=== PATIENT | female | born 2000 | race Caucasian/White ===

== ENCOUNTER 2023-06-12 11:50 | Emergency (ER) | payer OTHER, SELFPAY ==
[2023-06-12 11:54] VITALS: BP 119/79
[2023-06-12 12:15] VITALS: BMI 23.1
--- NOTE | 2023-06-12 12:23 | EDRN ---
pt resting in stretcher in the lowest position, side rails up x1, HOB elevated, call fox within reach, the pt states that she cannot eat or drink due to trouble swallowing, the pts voice sounds muffled and the pt states that her throat is swollen,
no s/s of distress, Sp02 99%, Nilesh TRINH notified, will continue to monitor the pt closely
--- NOTE | 2023-06-12 12:39 | ED.GENMED ---
History of Present Illness
General
Chief Complaint: Throat Problem
Source: patient
Time Seen by Provider: 06/12/23 12:04
Travel History
Have you had any contact with someone who has COVID-19?: No
Do you have any symptoms of coronavirus? Fever > 100 degrees, chills, cough, shortness of breath, sore throat, loss of taste or smell, muscle aches, or headache?: Yes
Symptoms:: sore throat
History of Present Illness
History of Present Illness:
23-year-old female with past medical history of anxiety/depression presents to the emergency department for evaluation after she was diagnosed with tonsillitis 4 days ago, started on Augmentin but states that she has not had any relief and her voice
remains very hoarse, has continuously enlarged tonsils with exudates and generally feeling unwell. She reports she had a similar infection around 2 months ago and felt better after 1 day of antibiotics. She endorses additional fatigue and
bodyaches. No known sick contacts or recent travel. No rashes. Of note, patient's mother is an emergency department physician who diagnosed the patient and started her on the antibiotics 4 days ago.
Past History
Past History
ED Past Medical History: Psychiatric (Depression, Anxiety, ADHD) and Other (Scoliosis, )
ED Past Surgical History: Other (Mastoidectomy)
Social History
Tobacco: Vaping
Alcohol: None
Drug: Marijuana
Personal: Single
Living: with family
Employment: Employed
Family History
Family History: Other
Review of Systems
Review of Systems
All Other Systems: ROS reviewed and negative except as documented in HPI and ROS
Phy Exam
Physical Exam
Physical Exam:
GENERAL: Alert , in no apparent distress
EYE: conjunctiva clear
NECK: Supple, posterior cervical chain lymphadenopathy and submandibular lymphadenopathy
ENT: 2+ tonsillar edema bilateral with exudates, uvula midline, airway patent, tolerating secretions, no trismus or stridor, mmm.
CARDIAC: Regular rate and rhythm
LUNGS: Clear breath sounds bilaterally, no acute respiratory distress, no wheezes/rales/rhonchi
NEUROLOGICAL: Alert and oriented
SKIN: Warm and dry, skin intact.
MUSCULOSKELETAL: well perfused.
PSYCH: Normal and appropriate interaction.
Scores
Heart Failure Risk
Heart Failure Risk Score: Not Applicable
Heart Score for Chest Pain Patients
STEMI patient?: Not applicable
Withdrawal Assessment of Alcohol
Withdrawal Assessment Completed?: Not applicable
Course
Orders/Labs/Results
Orders:
Orders
06/12/23 12:33
Dexamethasone Sod Phosphate [Decadron] 10 mg IV NOW STA
Ketorolac [Toradol] 30 mg IV NOW STA
Viscous Lidocaine 2% [Xylocaine Viscous Cup] 15 ml PO NOW STA
06/12/23 12:46
Complete Blood Count/With Diff Urgent
Comprehensive Metabolic Panel Urgent
Manual Differential Urgent
Monotest Urgent
Abnormal Lab Results
06/12/23
12:46
Segmented Neutrophils 39 L %
(42-75)
Creatinine 0.5 L mg/dL
(0.6-1.0)
AST 105 H U/L
(14-36)
ALT 195 H U/L
(0-35)
Alkaline Phosphatase 191 H U/L
(38-126)
Monoscreen Positive A
(Negative)
06/12/23 12:46
06/12/23 12:46
Vital Signs
Initial and Last Documented VS:
Initial Vital Signs
Temp Pulse Resp BP Pulse Ox
98.6 F 96 18 119/79 97
06/12/23 11:54 06/12/23 11:54 06/12/23 11:54 06/12/23 11:54 06/12/23 11:54
Last Documented Vital Signs
Temp Pulse Resp BP Pulse Ox
98.6 F 90 18 136/83 99
06/12/23 11:54 06/12/23 13:59 06/12/23 11:54 06/12/23 13:59 06/12/23 12:15
MDM/Problems Addressed
Differential Diagnosis Includes:
Tonsillitis, mono, strep, peritonsillar abscess, retropharyngeal abscess
MDM/Problems Addressed:
23-year-old female recently diagnosed with tonsillitis, started on Augmentin, taking without much relief. Exam does reveal 2+ tonsillar edema with exudates bilateral. Given lack of improvement I do suspect there could be a potential for
mononucleosis. Will check labs. Symptomatic relief with Toradol, Decadron and viscous lidocaine.
*Pulse Oximetry
Patient hypoxic: no
*Critical Care Note
Total Time (30-74mins, 75-104mins- exclusive of procedures): Not Applicable
Patient Management
Escalation/DeEscalation of care consider admission/obs:
Patient's mono came back positive. LFTs were mildly elevated. Patient's mother is now in the emergency department with the patient who is an ER attending and with shared decision making we discussed CT of the neck to rule out any abscess however
mother would like to forego this at this time but they are aware of return precautions to the ER. Stable for discharge home. Prescription for a Medrol Dosepak sent to patient's pharmacy.
ED Attending Note
-
Portions of this chart may have been created with voice recognition software.� Occasional wrong word or��sound alike� substitutions may have occurred due to the inherent limitations of voice recognition software.
Discharge Plan
Departure
Patient Disposition: Home (Routine Discharge)
Date of Disposition: 06/12/23
Time of Disposition: 13:49
Patient with high blood pressure during this ER visit?: No
Discharge Problem:
Mononucleosis
Instructions: Mononucleosis (DC)
Prescriptions:
New
methylprednisolone [Medrol (Martin)] 4 mg tablets,dose pack
4 mg PO DIRECTED Qty: 21 0RF
No Action
trazodone 50 mg Tablet
50 mg PO HS
lurasidone [Latuda] 40 mg Tablet
40 mg PO DAILY
Rx Instructions:
must administer with food (at least 350 calories)
Luvox
25 mg PO HS
amoxicillin-pot clavulanate [Augmentin] 400-57 mg/5 mL Suspension For Reconstitution
10 ml PO BID
Referrals:
Jazz Alberto CRNP [Family Provider] -
Negrito Frank MD [Active] -
(ENT - Call for appointment as needed
)
Stand Alone Forms: Return to Work
Interventions
Interventions:
*Risk Screen - Suicide Last Done: 06/12/23 11:54
*General Assessment Last Done: 06/12/23 11:54
*Neglect/Abuse Screening Last Done: 06/12/23 11:54
ED- Fall Risk Assessment Last Done: 06/12/23 12:15
*ED COVID-19 Vaccine History Last Done: 06/12/23 11:54
*Nursing Disposition Last Done: 06/12/23 13:59
ED-EENT Assessment Last Done: 06/12/23 12:15
ED- Pulmonary Assessment Last Done: 06/12/23 12:15
Discharge Date and Time
Discharge Date/Time: 06/12/23 14:00
[2023-06-12] MEDS: XYLOCAINE VISCOUS CUP 15 ML PO (12:57)
[2023-06-12] MEDS: TORADOL 30 MG IV (12:57)
[2023-06-12] MEDS: DECADRON 10 MG IV (12:58)
[2023-06-12 13:01] LABS: Hematocrit 38.1 % (37.0-47.0); Hemoglobin 12.9 g/dL (12.0-16.0); Mean Corp Hgb Conc. 33.9 g/dL (33.0-37.0); Mean Corpuscular Hgb 28.1 pg (27.0-31.0); Mean Platelet Volume 10.1 fL (7.4-10.4); Platelet Count 242 10^3/uL (130-400); Red Blood Cell Count 4.59 10^6/uL (4.20-5.40); Red Cell Dist. Width 13.4 % (11.5-14.5); White Blood Cell Count 7.3 10^3/uL (4.8-10.8)
[2023-06-12 13:14] LABS: ALT (SGPT) 195 U/L (0-35); AST (SGOT) 105 U/L (14-36); Albumin 4.1 g/dl (3.5-5.0); Alkaline Phosphatase 191 U/L (38-126); Blood Urea Nitrogen 14 mg/dl (7-17); Calcium 9.2 mg/dl (8.4-10.2); Carbon Dioxide 26 mmol/L (22-30); Chloride 107 mmol/L (98-107); Estimated Creatinine Clearance > 125 ml/min; Glucose 91 mg/dl (70-99); Sodium 136 mmol/L (135-145); Total Protein 7.2 g/dl (6.3-8.2); eGFR > 60.00
--- NOTE | 2023-06-12 13:24 | EDRN ---
Nilesh TRINH currently at the pts bedside speaking to the pt and the pts mother
[2023-06-12 13:35] LABS: Absolute Neutrophils -Man Diff 2.8 10^3/uL (1.4-6.5); Atypical Lymphocytes 7 %; Band Neutrophils 0 % (0-3); Lymphocytes 49 % (20-51); Monocytes 5 % (2-9); Normal RBC Morphology Yes; Platelets Checked Yes; Segmented Neutrophils 39 % (42-75); Total Cells Counted 100
[2023-06-12 13:43] LABS: Monotest Positive (Negative)
--- NOTE | 2023-06-12 13:45 | EDRN ---
verbal report given to results pending nurse Darlin MACDONALD, the pt will be taken to [facility]
[2023-06-12 13:57] VITALS: BP 136/83
[2023-06-12 13:59] VITALS: BP 136/83
== END 2023-06-12 14:00 | disposition home or self-care (01) ==
LOC: EMR 11:50
PROVIDERS: Physician Assistant Medical; EMERGENCY PHYSICIAN Emergency Medicine; FAMILY PHYSICIAN Nurse Practitioner Family
DX: B27.90 Infectious mononucleosis, unspecified without complication (principal); F17.290 Nicotine dependence, other tobacco product, uncomplicated; F41.9 Anxiety disorder, unspecified; F32.A Depression, unspecified
CPT/HCPCS: 99284; 96374; 96375; 80053; 85025; 86308

== ENCOUNTER 2023-07-27 06:16 | Emergency (ER) | payer SELFPAY ==
[2023-07-27 06:19] VITALS: BP 143/96
[2023-07-27 06:22] VITALS: BMI 23.1
--- NOTE | 2023-07-27 06:53 | ED.GENMED ---
History of Present Illness
General
Chief Complaint: Abdominal Symptoms
Source: patient and records
Exam Limitations: none
Time Seen by Provider: 07/27/23 06:40
Nursing documentation reviewed up to this point in time: agreed with
Travel History
Have you had any contact with someone who has COVID-19?: No
Do you have any symptoms of coronavirus? Fever > 100 degrees, chills, cough, shortness of breath, sore throat, loss of taste or smell, muscle aches, or headache?: No
History of Present Illness
History of Present Illness:
23-year-old female presents with abdominal pain nausea vomiting history of hyperemesis cannabis syndrome had quit smoking for a while restarted recently woke up middle the night vomiting with cramping no diarrhea no fever no prior abdominal
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
Past History
Past History
ED Past Medical History: Psychiatric (Depression, Anxiety, ADHD) and Other (Scoliosis, )
ED Past Surgical History: Other (Mastoidectomy)
Social History
Tobacco: Vaping
Alcohol: None
Drug: Marijuana
Personal: Single
Living: with family
Employment: Employed
Family History
Family History: Other
Review of Systems
Review of Systems
All Other Systems: Not applicable
Constitutional: Denies fever or fatigue
EENT: Reports no symptoms
Respiratory: Reports no symptoms
Cardiac: Reports no symptoms
ABD/GI: Reports abdominal pain, nausea and vomiting; Denies diarrhea
Musculoskeletal: Reports no symptoms
Skin: Reports no symptoms
Phy Exam
Physical Exam
Physical Exam:
Physical Exam
General: 23 female appears nauseous
Neck: Lips are dry
Heart: s1/s2 regular rate and rhythm, no murmur. equal radial pulses.
Lungs: no acute respiratory distress. clear bilaterally
Abdomen: Soft mild diffuse tender
Neuro: alert and oriented. no focal neurological deficits
Skin: no rash
Psychiatric: well kept. interactive and cooperative
Extremities: no edema.
Course
Orders/Labs/Results
Orders:
Orders
07/27/23 06:49
0.9% Sodium Chloride 1000 ml [Nss] 1,000 ml IV BOLUS
Ondansetron Injectable [Zofran] 4 mg IV NOW STA
Promethazine [Phenergan] 25 mg 0.9% Sodium Chloride 50 ml [Nss] 50 ml IV NOW
Test Result ONCE
07/27/23 07:05
Diphenhydramine [Benadryl] 25 mg IV NOW STA
07/27/23 07:18
Haloperidol Lactate [Haldol] 3 mg IM NOW STA
07/27/23 07:32
HCG, Urine Qualitative Screen Urgent
Date Specimen was Collected: 07/27/23
Time Specimen was Collected: 07:30
07/27/23 07:40
Complete Blood Count/With Diff Urgent
07/27/23 07:46
Ondansetron Injectable [Zofran] 4 mg IV NOW STA
07/27/23 08:01
Comprehensive Metabolic Panel Urgent
Abnormal Lab Results
07/27/23
07:40
WBC 10.9 H 10^3/uL
(4.8-10.8)
Absolute Neuts (auto) 9.1 H 10^3/uL
(1.4-6.5)
Absolute Lymphs (auto) 1.0 L 10^3/uL
(1.2-3.4)
Neutrophils % 84.1 H %
(42.2-75.2)
Lymphocytes % 9.0 L %
(20.5-51.1)
07/27/23 07:40
Vital Signs
Initial and Last Documented VS:
Initial Vital Signs
Temp Pulse Resp BP Pulse Ox
97.6 F 126 28 143/96 100
07/27/23 06:19 07/27/23 06:19 07/27/23 06:19 07/27/23 06:19 07/27/23 06:19
Last Documented Vital Signs
Temp Pulse Resp BP Pulse Ox
97.6 F 78 16 127/73 99
07/27/23 06:19 07/27/23 10:05 07/27/23 10:05 07/27/23 10:05 07/27/23 10:05
MDM/Problems Addressed
Differential Diagnosis Includes:
Dehydration hyperemesis cannabis enteritis infectious colitis appendicitis biliary colic
MDM/Problems Addressed:
Nausea vomiting pain
Chronic conditions affecting care:
Mental illness hyperemesis cannabis
Acute Exacerbation and/or Progression of Chronic Illness:
Mental illness hyperemesis
*Pulse Oximetry
Patient hypoxic: no
*Critical Care Note
Total Time (30-74mins, 75-104mins- exclusive of procedures): Not Applicable
Data Reviewed
Review of Other/Old Records Reveals: Records and Progress Notes
Source: patient
Update Note
Update Note:
8:15 AM patient resting comfortably looks much improved
White count and hCG noted other labs are hemolyzed
10:30 AM patient resting comfortably will try some p.o. ice chips
11 AM patient feeling better
ED Attending Note
-
Portions of this chart may have been created with voice recognition software.� Occasional wrong word or��sound alike� substitutions may have occurred due to the inherent limitations of voice recognition software.
Discharge Plan
Departure
Patient Disposition: Home (Routine Discharge)
Date of Disposition: 07/27/23
Time of Disposition: 10:31
Patient with high blood pressure during this ER visit?: No
Condition: Good
Discharge Problem:
Cannabis use, unspecified, uncomplicated, Nausea with vomiting, unspecified
Instructions: Dehydration, Adult (DC), [place] Diet, Abdominal Pain
Prescriptions:
New
promethazine 25 mg tablet
25 mg PO QID PRN (Reason: nausea and vomiting) Qty: 14 0RF
No Action
trazodone 50 mg Tablet
25 mg PO HS
fluoxetine [Prozac] 20 mg Capsule
20 mg PO DAILY
Referrals:
Jazz Alberto CRNP [Family Provider] -
Interventions
Interventions:
*Risk Screen - Suicide Last Done: 07/27/23 06:19
*General Assessment Last Done: 07/27/23 06:29
*Neglect/Abuse Screening Last Done: 07/27/23 06:19
ED- Fall Risk Assessment Last Done: 07/27/23 07:28
*ED COVID-19 Vaccine History Last Done: 07/27/23 06:19
MP-Wifpgr-Zyuexudrup Assessment Last Done: 07/27/23 06:29
Discharge Date and Time
Print Language: DJIBOUTIAN
[2023-07-27] MEDS: NSS 1000 IV (07:40)
[2023-07-27] MEDS: BENADRYL 25 MG IV (07:43)
[2023-07-27] MEDS: ZOFRAN 4 MG IV (07:43)
[2023-07-27] MEDS: HALDOL 3 MG IM (07:45)
[2023-07-27 07:56] LABS: HCG, Urine Qualitative Screen Negative
[2023-07-27 08:01] LABS: % Basophils 0.4 % (0-2); % Eosinophils 0.3 % (0-6); % Immature Granulocytes 0.4 % (0-0.5); % Monocytes 5.8 % (1.7-9.3); % Neutrophils 84.1 % (42.2-75.2); Absolute Monocytes 0.6 10^3/uL (0.1-0.6); Absolute Neutrophils 9.1 10^3/uL (1.4-6.5); Hematocrit 41.6 % (37.0-47.0); Hemoglobin 14.2 g/dL (12.0-16.0); Mean Corp Hgb Conc. 34.1 g/dL (33.0-37.0); Mean Corpuscular Hgb 28.7 pg (27.0-31.0); Mean Corpuscular Volume 84.2 fL (81.0-99.0); Mean Platelet Volume 10.2 fL (7.4-10.4); Nucleated Red Blood Cells % 0 %; Platelet Count 236 10^3/uL (130-400); Red Blood Cell Count 4.94 10^6/uL (4.20-5.40); Red Cell Dist. Width 12.6 % (11.5-14.5); White Blood Cell Count 10.9 10^3/uL (4.8-10.8)
[2023-07-27 10:05] VITALS: BP 127/73
[2023-07-27 11:03] VITALS: BP 112/73
== END 2023-07-27 11:16 | disposition home or self-care (01) ==
LOC: EMR 06:16
PROVIDERS: EMERGENCY PHYSICIAN Emergency Medicine; FAMILY PHYSICIAN Nurse Practitioner Family
DX: F12.90 Cannabis use, unspecified, uncomplicated (principal); R11.2 Nausea with vomiting, unspecified; F41.9 Anxiety disorder, unspecified; F90.9 Attention-deficit hyperactivity disorder, unspecified type; M41.9 Scoliosis, unspecified; F17.290 Nicotine dependence, other tobacco product, uncomplicated
CPT/HCPCS: 99283; 96374; 96375; 96376; 96372; 96361; 81025; 85025

== ENCOUNTER → 2024-01-05 11:53 | Outpatient (REF) | payer OTHER, SELFPAY | LOC: UCDH 11:53 | PROVIDERS: ATTENDING PHYSICIAN Emergency Medicine; FAMILY PHYSICIAN Nurse Practitioner Family | DX: S69.92XA Unspecified injury of left wrist, hand and finger(s), initial encounter (principal) | CPT/HCPCS: 73110 ==

== ENCOUNTER 2024-03-19 10:20 | Emergency (ER) | payer OTHER, SELFPAY ==
[2024-03-19 10:23] VITALS: BP 109/85
--- NOTE | 2024-03-19 10:35 | ED.GENMED ---
History of Present Illness
General
Chief Complaint: Musculo-Skeletal Complaint
Source: patient
Exam Limitations: none
Time Seen by Provider: 03/19/24 10:27
Nursing documentation reviewed up to this point in time: agreed with
History of Present Illness
History of Present Illness:
23-year-old female presents emergency department today with left lateral ankle pain and swelling. Patient reports that last night, she was with friends and was having a few drinks when she was walking and her ankle rolled inwards and she
immediately felt sharp pain. Patient states that she did not fall to the ground. Patient denies any trauma to the head or neck. Patient states that since the injury, she started develop swelling and states that she has pain with weightbearing.
Patient denies any other injuries.
Past History
Past History
ED Past Medical History: Psychiatric (Depression, Anxiety, ADHD) and Other (Scoliosis, )
ED Past Surgical History: Other (Mastoidectomy)
Social History
Tobacco: Vaping
Alcohol: None
Drug: Marijuana
Personal: Single
Living: with family
Employment: Employed
Family History
Family History: Other
Review of Systems
Review of Systems
All Other Systems: ROS reviewed and negative except as documented in HPI and ROS
Phy Exam
Physical Exam
Physical Exam:
General: Patient is well appearing and in no acute distress; non-toxic
Skin: Warm and dry, no rashes or lesions
Head: Normocephalic, atraumatic
Eyes: Sclera non-icteric. EOMs intact.
Cardiac: Regular rate
Peripheral Vascular: 2+DP TP pulses
Pulm: Normal respiratory effort
Musculoskeletal: Pain with varus stress to left ankle, swelling noted over lateral malleolus. Negative anterior drawer testing. No tenderness to palpation over the base of the 5th metatarsal, no proximal fibula tenderness.
Neuro: CN II-XII intact, no focal neurologic deficits. Sensation intact.
Psychiatric: Appropriate mood and affect.
Course
Orders/Labs/Results
Orders:
Orders
03/19/24 10:25
Ankle, left 3 view CR [CR Ankle - Left Min 3 Views ] Urgent
Comment:
Reason For Exam: injury
03/19/24 10:52
Carlos Wrap Left-Treatment ONCE
Air Splint Left-Treatment ONCE
Vital Signs
Initial and Last Documented VS:
Initial Vital Signs
Temp Pulse Resp BP Pulse Ox
98 F 89 16 109/85 98
03/19/24 10:23 03/19/24 10:23 03/19/24 10:23 03/19/24 10:23 03/19/24 10:23
Last Documented Vital Signs
Temp Pulse Resp BP Pulse Ox
98 F 89 16 109/85 98
03/19/24 10:23 03/19/24 10:23 03/19/24 10:23 03/19/24 10:23 03/19/24 10:23
MDM/Problems Addressed
Differential Diagnosis Includes:
see below
MDM/Problems Addressed:
NUMBER AND COMPLEXITY OF PROBLEMS ADDRESSED AT THE ENCOUNTER
� Chronic conditions affecting care: anxiety, depression
� Acute Exacerbation and/or Progression of Chronic Illness:
� Differential Diagnosis includes: anterior talofibular ligament sprain, calcaneofibular ligament strain, distal fibula fracture
AMOUNT AND/OR COMPLEXITY OF DATA TO BE REVIEWED AND ANALYZED
� I performed an independent evaluation of and my interpretation is:
X-rays: No acute fracture or dislocation
Laboratory Studies: not indicated at this time
Other:
� Review of other/old records: Reviewed ER physician documentation from 07/27/2023, patient presented with hyper emesis cannabis
� Clinical information was obtained by an independent historian: n/a
� Prescriptions/Medications Considered but not given: n/a
� Further testing considered but not performed: n/a
RISK OF COMPLICATIONS AND/OR MORBIDITY OR MORTALITY OF PATIENT MANAGEMENT
� Social determinants of health affecting care: none
� Discussion with other providers: ER attending
� Escalation of care including admission/observation vs risk of discharge considered:
23-year-old female presents emergency department today with left lateral ankle pain and swelling. This occurred when she rolled her ankle. She did not fall. She is able to ambulate but with pain. Patient on exam does have pain with varus stress
of the ankle however her ankle joint is stable. She is neurovascularly intact. Suspect ankle sprain. Her x-ray of the ankle is unremarkable, mortise intact. Patient will be given Aircast and Carlos wrap, patient stable for discharge.
*Critical Care Note
Total Time (30-74mins, 75-104mins- exclusive of procedures): Not Applicable
ED Attending Note
-
Portions of this chart may have been created with voice recognition software.� Occasional wrong word or��sound alike� substitutions may have occurred due to the inherent limitations of voice recognition software.
Discharge Plan
Departure
Patient Disposition: Home (Routine Discharge)
Date of Disposition: 03/19/24
Time of Disposition: 10:58
Patient with high blood pressure during this ER visit?: Yes
Condition: Good
Discharge Problem:
Left ankle sprain
Instructions: Ankle sprain - ED discharge instructions, RICE Therapy
Prescriptions:
No Action
trazodone 50 mg Tablet
25 mg PO HS
fluoxetine [Prozac] 20 mg Capsule
20 mg PO DAILY
promethazine 25 mg tablet
25 mg PO QID PRN (Reason: nausea and vomiting) Qty: 14 0RF
Referrals:
Srikanth Pérez MD [Active] - Call in 1-3 days for appt
Jazz Alberto CRNP [Family Provider] -
Activity Restrictions/Additional Instructions:
Please wear air cast when ambulating, you can use crutches at home for support with ambulation. At home, please keep your foot elevated and compressed with carlos wrap to help with swelling. You can apply ice as well.
You can take 400 mg ibuprofen every 4-6 hours as needed for pain.
Please return to the ER should you develop an acute worsening of your symptoms, an inability to ambulate, loss of sensation in your ankle, numbness or tingling, dizziness, lightheadedness, chest pain, shortness of breath, or any other signs or
symptoms concerning to you.
Interventions
Interventions:
*Risk Screen - Suicide Last Done: 03/19/24 10:23
*General Assessment Last Done: 03/19/24 10:23
*Neglect/Abuse Screening Last Done: 03/19/24 10:23
Discharge Date and Time
Print Language: BELARUSIAN
== END 2024-03-19 11:12 | disposition home or self-care (01) ==
LOC: EMR 10:20
PROVIDERS: EMERGENCY PHYSICIAN Emergency Medicine; FAMILY PHYSICIAN Nurse Practitioner Family
DX: S93.402A Sprain of unspecified ligament of left ankle, initial encounter (principal); X50.1XXA Overexertion from prolonged static or awkward postures, initial encounter; F17.290 Nicotine dependence, other tobacco product, uncomplicated
CPT/HCPCS: 99283; 29515; 73610

== ENCOUNTER 2024-04-03 11:19 | Emergency (ER) | payer OTHER, SELFPAY ==
[2024-04-03 11:22] VITALS: BP 134/90
[2024-04-03 11:45] LABS: % Basophils 0.2 % (0-2); % Eosinophils 0.4 % (0-6); % Immature Granulocytes 0.2 % (0-0.5); % Lymphocytes 4.4 % (20.5-51.1); % Monocytes 4.1 % (1.7-9.3); % Neutrophils 90.7 % (42.2-75.2); Absolute Eosinophils 0.1 10^3/uL (0-0.7); Absolute Lymphocytes 0.6 10^3/uL (1.2-3.4); Absolute Monocytes 0.5 10^3/uL (0.1-0.6); Absolute Neutrophils 11.4 10^3/uL (1.4-6.5); Hematocrit 43.1 % (37.0-47.0); Hemoglobin 14.5 g/dL (12.0-16.0); Mean Corp Hgb Conc. 33.6 g/dL (33.0-37.0); Mean Corpuscular Hgb 29.6 pg (27.0-31.0); Nucleated Red Blood Cells % 0 %; Platelet Count 255 10^3/uL (130-400); Red Cell Dist. Width 12.4 % (11.5-14.5); White Blood Cell Count 12.6 10^3/uL (4.8-10.8)
[2024-04-03 11:58] LABS: HCG, Serum Qualitative Screen Negative
[2024-04-03 12:03] LABS: ALT (SGPT) 28 U/L (0-35); AST (SGOT) 37 U/L (14-36); Albumin 5.3 g/dl (3.5-5.0); Alkaline Phosphatase 66 U/L (38-126); Blood Urea Nitrogen 19 mg/dl (7-17); Calcium 9.9 mg/dl (8.4-10.2); Carbon Dioxide 19 mmol/L (22-30); Chloride 106 mmol/L (98-107); Glucose 117 mg/dl (70-99); Potassium 4.1 mmol/L (3.5-5.1); Sodium 140 mmol/L (135-145); Total Bilirubin 1.3 mg/dl (0.2-1.3); Total Protein 8.3 g/dl (6.3-8.2); eGFR > 60.00
[2024-04-03 12:25] LABS: Lipase 137 U/L (23-300)
--- NOTE | 2024-04-03 13:34 | ED.GENMED ---
History of Present Illness
General
Chief Complaint: Abdominal Symptoms
Source: patient
Exam Limitations: none
Time Seen by Provider: 04/03/24 13:28
Nursing documentation reviewed up to this point in time: agreed with
History of Present Illness
History of Present Illness:
24 yo female present for nausea, vomiting, diarrhea since 5 a.m., sudden onset. She has had Hyperemesis Cannabis in the past and uses pot 4-5 times a week but this time she has liquid non bloody diarrhea 'a lot.'
Past History
Past History
ED Past Medical History: Psychiatric (Depression, Anxiety, ADHD), Other (Scoliosis, ) and Other (cyclic vomiting)
ED Past Surgical History: Other (Mastoidectomy)
Social History
Tobacco: Vaping
Alcohol: None
Drug: Marijuana
Personal: Single
Living: with family
Employment: Employed
Family History
Family History: Other
Review of Systems
Review of Systems
Allergies reviewed?: Yes
All Other Systems: ROS reviewed and negative except as documented in HPI and ROS
Constitutional: Denies fever
Respiratory: Denies trouble breathing
Cardiac: Denies chest pain
ABD/GI: Reports abdominal pain (from vomiting), nausea, vomiting and diarrhea; Denies bloody stools or black stools
: Denies dysuria or difficulty voiding
Musculoskeletal: Reports no symptoms
Skin: Reports no symptoms
Neurological: Reports no symptoms
Phy Exam
Physical Exam
Physical Exam:
GENERAL: No acute distress. A&Ox3.
CONSTITUTIONAL: Afebrile.
EYES: clear, conjunctivae normal
ENMT: moist mucus membranes, Pharynx nl
RESPIRATORY: Regular respirations, nonlabored, lungs clear.
CARDIOVASCULAR: Regular rate and rhythm, no murmurs, no rubs.
GI: Soft, nontender, normal BS
MUSCULOSKELETAL: Moves with ease. Well perfused.
SKIN: Warm, dry, pink
PSYCH: Anxious mood and affect. Well kept, interactive and appropriate
NEUROLOGIC: Awake, alert and oriented. No focal neurological deficits
Course
Orders/Labs/Results
Orders:
Orders
04/03/24 11:25
Test Result ONCE
04/03/24 11:35
Complete Blood Count/With Diff Urgent
Comprehensive Metabolic Panel Urgent
HCG, Serum Qualitative Screen Urgent
Lipase Urgent
04/03/24 13:33
0.9% Sodium Chloride 1000 ml [Nss] 1,000 ml IV BOLUS
Ondansetron Injectable [Zofran] 4 mg IV NOW STA
Abnormal Lab Results
04/03/24
11:35
WBC 12.6 H 10^3/uL
(4.8-10.8)
Absolute Neuts (auto) 11.4 H 10^3/uL
(1.4-6.5)
Absolute Lymphs (auto) 0.6 L 10^3/uL
(1.2-3.4)
Neutrophils % 90.7 H %
(42.2-75.2)
Lymphocytes % 4.4 L %
(20.5-51.1)
Carbon Dioxide 19 L mmol/L
(22-30)
BUN 19 H mg/dl
(7-17)
Glucose 117 H mg/dl
(70-99)
AST 37 H U/L
(14-36)
Total Protein 8.3 H g/dl
(6.3-8.2)
Albumin 5.3 H g/dl
(3.5-5.0)
04/03/24 11:35
04/03/24 11:35
Vital Signs
Initial and Last Documented VS:
Initial Vital Signs
Temp Pulse Resp BP Pulse Ox
98.1 F 83 18 134/90 99
04/03/24 11:22 04/03/24 11:22 04/03/24 11:22 04/03/24 11:22 04/03/24 11:22
Last Documented Vital Signs
Temp Pulse Resp BP Pulse Ox
98.1 F 78 16 122/61 99
04/03/24 11:22 04/03/24 15:22 04/03/24 15:22 04/03/24 15:22 04/03/24 15:22
MDM/Problems Addressed
Differential Diagnosis Includes:
Gastroenteritis, norovirus, hyperemesis cannabis
MDM/Problems Addressed:
24 yo female present for nausea, vomiting, diarrhea since 5 a.m., sudden onset. She has had Hyperemesis Cannabis in the past and uses pot 4-5 times a week but this time she has liquid non bloody diarrhea 'a lot.'
Afebrile,
CBC: Mild reactive leukocytosis
CMP unremarkable
hCG negative
Lipase within normal limits
Pt with small amount clear with yellowish sediment watery diarrhea
3:20 p.m.
After IVF's and Zofran pt states feeling much better and wants to go
Rx for Zofran sent to her pharmacy (No QT prolongation on EKG 03/20/24)
*Critical Care Note
Total Time (30-74mins, 75-104mins- exclusive of procedures): Not Applicable
ED Attending Note
-
Portions of this chart may have been created with voice recognition software.� Occasional wrong word or��sound alike� substitutions may have occurred due to the inherent limitations of voice recognition software.
Discharge Plan
Departure
Patient Disposition: Home (Routine Discharge)
Date of Disposition: 04/03/24
Time of Disposition: 15:25
Patient with high blood pressure during this ER visit?: No
Condition: Good
Discharge Problem:
Viral gastroenteritis
Instructions: Viral gastroenteritis in adults
Prescriptions:
New
ondansetron 4 mg tablet,disintegrating
4 mg PO Q8H PRN (Reason: nausea and vomiting) Qty: 10 0RF
No Action
trazodone 50 mg Tablet
25 mg PO HS
fluoxetine [Prozac] 20 mg Capsule
20 mg PO DAILY
promethazine 25 mg tablet
25 mg PO QID PRN (Reason: nausea and vomiting) Qty: 14 0RF
Referrals:
Jazz Alberto CRNP [Family Provider] - As needed
Activity Restrictions/Additional Instructions:
As we discussed, you most likely have a viral gastroenteritis. Drink plenty of fluids
I sent a prescription to your pharmacy for Zofran to use if needed for nausea and bowel
See your doctor in 5 to 7 days if you are not better by then
Interventions
Interventions:
*Risk Screen - Suicide Last Done: 04/03/24 11:22
*General Assessment Last Done: 04/03/24 11:22
*Neglect/Abuse Screening Last Done: 04/03/24 11:22
ED- Fall Risk Assessment Last Done: 04/03/24 14:14
*ED COVID-19 Vaccine History Last Done: 04/03/24 11:22
*Nursing Disposition Last Done: 04/03/24 15:38
SN-Nvwsvp-Fxqgzewopy Assessment Last Done: 04/03/24 14:14
Discharge Date and Time
Discharge Date/Time: 04/03/24 15:40
Print Language: DANISH
[2024-04-03] MEDS: NSS 1000 IV (14:06)
[2024-04-03] MEDS: ZOFRAN 4 MG IV (14:06)
[2024-04-03 15:22] VITALS: BP 122/61
== END 2024-04-03 15:40 | disposition home or self-care (01) ==
LOC: EMR 11:19
PROVIDERS: Emergency Medicine; EMERGENCY PHYSICIAN Emergency Medicine; FAMILY PHYSICIAN Nurse Practitioner Family
DX: A08.4 Viral intestinal infection, unspecified (principal); F17.290 Nicotine dependence, other tobacco product, uncomplicated; F12.90 Cannabis use, unspecified, uncomplicated
CPT/HCPCS: 96374; 96361; 99284; 80053; 83690; 84703; 85025

== ENCOUNTER 2024-05-17 23:58 | Emergency (ER) | payer OTHER, SELFPAY ==
[2024-05-18 00:01] VITALS: BP 137/96
[2024-05-18 01:12] VITALS: BMI 27.1
[2024-05-18] MEDS: HALDOL 2 MG IV (01:13)
[2024-05-18] MEDS: BENADRYL 12.5 MG IV (01:13)
--- NOTE | 2024-05-18 01:13 | ED.GENMED ---
History of Present Illness
General
Chief Complaint: Abdominal Pain
Source: patient and previous hospital records (Previous ED visits for similar complaints May 2023 as well as April 03, 2024)
Exam Limitations: none
Time Seen by Provider: 05/18/24 01:02
Nursing documentation reviewed up to this point in time: agreed with
History of Present Illness
History of Present Illness:
This is a 24-year-old female who presents with several hour history of recurrent nausea, vomiting, intermittent crampy abdominal discomfort. She also admits to 1 episode of very small nonbloody diarrhea.
She has history of cannabis hyperemesis syndrome with similar presentation July 2023. She was also evaluated here April 03, 2024 but at that time presented with nausea, vomiting and several episodes of diarrhea thought to be viral gastroenteritis
in nature.
She does admit to continued marijuana use generally 3-4 times per week.
She also recently began Ozempic treatment, receiving weekly injections at a [facility]. She states that the dose has been titrated up over the past month, unsure as to her current dose with last injection, Monday, 2 days ago. She does admit to
moderate nausea over the past 2 days with onset of vomiting this evening.
She has not had a fever nor chills. No chest pain or cough no shortness of breath. No dizziness nor lightheadedness. No hematemesis.
She denies risk of . Last menstrual period 1 month ago. She has IUD in place.
She does admit that taking showers or hot baths temporize her symptoms.
Past History
Past History
ED Past Medical History: Psychiatric (Depression, Anxiety, ADHD), Other (Scoliosis, cannabis hyperemesis syndrome) and Other (cyclic vomiting)
ED Past Surgical History: Other (Mastoidectomy)
Social History
Tobacco: Vaping
Alcohol: None
Drug: Marijuana
Personal: Single
Living: with family
Employment: Employed
Family History
Family History: Other (Noncontributory)
Phy Exam
Physical Exam
Physical Exam:
GENERAL: 24-year-old female appears her stated age, awake and alert, mildly anxious, easily communicative.
EYE: anicteric
NECK: Supple, nontender, no meningismus, no significant adenopathy.
ENT: posterior pharynx is clear, oral mucosa is moist. No rhinorrhea.
CARDIAC: Regular rate and rhythm. no murmur.
LUNGS: Clear breath sounds bilaterally, no acute respiratory distress, no wheezes/rales/rhonchi
ABDOMEN: Soft, nondistended, without focal tenderness, no r/g, no cvat. normoactive BS.
NEUROLOGICAL: Alert and oriented x3, no focal neuro deficits. Gait is steady. Minimally tremulous.
SKIN: Warm and dry, normal color, skin intact. No rash.
MUSCULOSKELETAL: No C/C/E. peripheral pulses are full and equal b/l. No palpable tenderness.
PSYCH: Mildly anxious. Minimally tremulous. Easily communicative.
Course
Orders/Labs/Results
Orders:
Orders
05/18/24 01:09
0.9% Sodium Chloride 1000 ml [Nss] 1,000 ml IV BOLUS
Diphenhydramine [Benadryl] 12.5 mg IV NOW STA
Haloperidol Lactate [Haldol] 2 mg IV NOW STA
05/18/24 01:10
Test Result ONCE
05/18/24 01:11
Cardiac Monitoring- Treatment ONCE
05/18/24 01:14
Electrocardiogram (*1) Urgent
Reason for Study: Abdominal Pain
05/18/24 01:17
Alcohol Urgent
Complete Blood Count/With Diff Urgent
Comprehensive Metabolic Panel Urgent
HCG, Serum Qualitative Screen Urgent
Lipase Urgent
05/18/24 01:27
Electrocardiogram (*1) Urgent
Reason for Study: Other
Other Reason for Exam: Potential overdose
Cardiac Monitoring- Treatment ONCE
IV Insert/Care/Rem.- Treatment PRN
Urine Drug Abuse Screen Urgent
Date Specimen was Collected: 05/18/24
Time Specimen was Collected: 01:28
Pulse Ox/spot Check [RESP] Urgent
Quantity: 1
05/18/24 01:51
Capsaicin [Zostrix-Hp 0.075% Cream] See Dose Instructions TOPICAL NOW STA
Abnormal Lab Results
05/18/24
01:17
WBC 12.1 H 10^3/uL
(4.8-10.8)
Abs Immat Gran (auto) 0.1 H 10^3/uL
(0-0.05)
Absolute Neuts (auto) 10.8 H 10^3/uL
(1.4-6.5)
Absolute Lymphs (auto) 0.9 L 10^3/uL
(1.2-3.4)
Neutrophils % 88.8 H %
(42.2-75.2)
Lymphocytes % 7.4 L %
(20.5-51.1)
BUN 20 H mg/dl
(7-17)
Glucose 138 H mg/dl
(70-99)
Calcium 10.5 H mg/dl
(8.4-10.2)
Total Bilirubin 1.7 H mg/dl
(0.2-1.3)
Total Protein 8.3 H g/dl
(6.3-8.2)
Albumin 5.3 H g/dl
(3.5-5.0)
05/18/24 01:17
05/18/24 01:17
Vital Signs
Initial and Last Documented VS:
Initial Vital Signs
Temp Pulse Resp BP Pulse Ox
97.7 F 85 20 137/96 99
05/18/24 00:01 05/18/24 00:01 05/18/24 00:01 05/18/24 00:01 05/18/24 00:01
Last Documented Vital Signs
Temp Pulse Resp BP Pulse Ox
97.7 F 87 17 95/58 98
05/18/24 00:01 05/18/24 03:00 05/18/24 03:00 05/18/24 03:00 05/18/24 03:00
MDM/Problems Addressed
Differential Diagnosis Includes:
Concern for cannabis hyperemesis syndrome, acute gastroenteritis. Other consideration is adverse reaction to GLP-1 agonist.
Abdomen is soft without appreciable tenderness, small bowel obstruction is unlikely.
Concern for dehydration, electrolyte abnormality.
Will initiate IV fluids, trial an IV dose of Haldol, capsaicin cream to abdomen.
Will check labs.
Chronic conditions affecting care: Other (History of cannabis hyperemesis syndrome. Recent initiation of GLP-1 agonist)
*Pulse Oximetry
Patient hypoxic: no
*[employer] Interpretation
Rate: normal
Interpretation: normal
Rhythm: sinus
*Critical Care Note
Total Time (30-74mins, 75-104mins- exclusive of procedures): Not Applicable
Update Note
Update Note:
05:30
Patient feeling improved. No further nausea/vomiting or abdominal discomfort after IV dose of Haldol, IV fluids.
Tolerating oral fluids well.
Labs show mildly elevated white blood cell count, similar to previous results. Mildly elevated bilirubin with otherwise normal LFTs. Similar occasional elevations noted in the past.
I highly suspect cannabis hyperemesis syndrome and patient has been urged to discontinue all cannabis use.
Also recommend she postpone or lower the next dose of Ozempic.
Prompt follow-up with PCP for recheck.
ED Attending Note
-
Portions of this chart may have been created with voice recognition software.� Occasional wrong word or��sound alike� substitutions may have occurred due to the inherent limitations of voice recognition software.
Discharge Plan
Departure
Patient Disposition: Home (Routine Discharge)
Date of Disposition: 05/18/24
Time of Disposition: 05:58
Patient with high blood pressure during this ER visit?: No
Condition: Good
Discharge Problem:
Cannabis hyperemesis syndrome concurrent with and due to cannabis dependence
Instructions: Cannabis hyperemesis syndrome
Prescriptions:
No Action
trazodone 50 mg Tablet
25 mg PO HS
fluoxetine [Prozac] 20 mg Capsule
20 mg PO DAILY
promethazine 25 mg tablet
25 mg PO QID PRN (Reason: nausea and vomiting) Qty: 14 0RF
ondansetron 4 mg tablet,disintegrating
4 mg PO Q8H PRN (Reason: nausea and vomiting) Qty: 10 0RF
Referrals:
Jazz Alberto CRNP [Family Provider] - Call in 1-3 days for appt
Interventions
Interventions:
*Risk Screen - Suicide Last Done: 05/18/24 00:01
*General Assessment Last Done: 05/18/24 00:01
*Neglect/Abuse Screening Last Done: 05/18/24 00:01
*ED COVID-19 Vaccine History Last Done: 05/18/24 00:01
SK-Tikwny-Auutgsuntv Assessment Last Done: 05/18/24 03:06
Discharge Date and Time
Print Language: [place]
[2024-05-18] MEDS: NSS 1000 IV (01:14)
[2024-05-18 01:45] LABS: ALT (SGPT) 22 U/L (0-35); AST (SGOT) 27 U/L (14-36); Albumin 5.3 g/dl (3.5-5.0); Alkaline Phosphatase 63 U/L (38-126); Blood Urea Nitrogen 20 mg/dl (7-17); Calcium 10.5 mg/dl (8.4-10.2); Carbon Dioxide 24 mmol/L (22-30); Chloride 100 mmol/L (98-107); Estimated Creatinine Clearance 122 ml/min; Glucose 138 mg/dl (70-99); Lipase 215 U/L (23-300); Potassium 4.2 mmol/L (3.5-5.1); Sodium 136 mmol/L (135-145); Total Bilirubin 1.7 mg/dl (0.2-1.3); Total Protein 8.3 g/dl (6.3-8.2); eGFR > 60.00
[2024-05-18 01:48] LABS: % Basophils 0.2 % (0-2); % Immature Granulocytes 0.4 % (0-0.5); % Lymphocytes 7.4 % (20.5-51.1); % Monocytes 3.2 % (1.7-9.3); % Neutrophils 88.8 % (42.2-75.2); Absolute Immature Granulocytes 0.1 10^3/uL (0-0.05); Absolute Lymphocytes 0.9 10^3/uL (1.2-3.4); Absolute Monocytes 0.4 10^3/uL (0.1-0.6); Absolute Neutrophils 10.8 10^3/uL (1.4-6.5); Hematocrit 42.6 % (37.0-47.0); Hemoglobin 14.8 g/dL (12.0-16.0); Mean Corp Hgb Conc. 34.7 g/dL (33.0-37.0); Mean Corpuscular Hgb 29.7 pg (27.0-31.0); Mean Corpuscular Volume 85.4 fL (81.0-99.0); Mean Platelet Volume 10.2 fL (7.4-10.4); Nucleated Red Blood Cells % 0 %; Platelet Count 285 10^3/uL (130-400); Red Blood Cell Count 4.99 10^6/uL (4.20-5.40); Red Cell Dist. Width 11.6 % (11.5-14.5); White Blood Cell Count 12.1 10^3/uL (4.8-10.8)
[2024-05-18 01:53] LABS: HCG, Serum Qualitative Screen Negative
[2024-05-18 02:00] VITALS: BP 122/73
[2024-05-18] MEDS: ZOSTRIX-HP 0.075% CREAM 1 APPLIC TOPICAL (02:03)
[2024-05-18 03:00] VITALS: BP 95/58
[2024-05-18 03:09] LABS: Alcohol None Detected
[2024-05-18 04:00] VITALS: BP 97/57
[2024-05-18 06:00] VITALS: BP 99/61
== END 2024-05-18 06:23 | disposition home or self-care (01) ==
LOC: EMR 23:58
PROVIDERS: EMERGENCY PHYSICIAN Emergency Medicine; FAMILY PHYSICIAN Nurse Practitioner Family
DX: R11.10 Vomiting, unspecified (principal); F12.20 Cannabis dependence, uncomplicated; F41.8 Other specified anxiety disorders; M41.9 Scoliosis, unspecified; F17.290 Nicotine dependence, other tobacco product, uncomplicated
CPT/HCPCS: 99283; 96374; 96375; 80053; 82077; 83690; 84703; 85025

== ENCOUNTER 2024-06-06 11:06 | Emergency (ER) | payer OTHER, SELFPAY ==
[2024-06-06 11:15] VITALS: BP 153/90
[2024-06-06 12:20] VITALS: BMI 26.5
--- NOTE | 2024-06-06 12:23 | EDRN ---
Pt states she last smoked marijuana 3 days ago and has CHS (canabis hyperemisis syndrome). Pt has burning upper abd and esophageal pain at 7/10 w/ N/V.
[2024-06-06 12:24] VITALS: BP 141/96
--- NOTE | 2024-06-06 13:00 | EDRN ---
Pt seen by Jj TRINH at this time.
[2024-06-06] MEDS: HALDOL 2 MG IV (13:24)
[2024-06-06] MEDS: NSS 1000 IV (13:26)
--- NOTE | 2024-06-06 13:31 | ED.GENMED ---
History of Present Illness
General
Chief Complaint: Abdominal Symptoms
Source: patient
Exam Limitations: none
Time Seen by Provider: 06/06/24 12:29
Nursing documentation reviewed up to this point in time: agreed with
History of Present Illness
History of Present Illness:
pt is a 24 y/o F
with h/o cannabis hyperemesis syndrome, heart murmur, anxiety
here with nausea/vomiting since 7 am today
has vomited aprox 10 times
nausea but no specific pain
no hematemesis
no fever/chills, diarrhea
on ozempic, doesn't feel like her vomiting is related to that
has had good response to haldol previously
last smoked 3 days ago
Past History
Past History
ED Past Medical History: Psychiatric (Depression, Anxiety, ADHD), Other (Scoliosis, cannabis hyperemesis syndrome) and Other (cyclic vomiting)
ED Past Surgical History: Other (Mastoidectomy)
Social History
Tobacco: Vaping
Alcohol: None
Drug: Marijuana
Personal: Single
Living: with family
Employment: Employed
Family History
Family History: Other (Noncontributory)
Review of Systems
Review of Systems
Allergies reviewed?: Yes
All Other Systems: Not applicable
Phy Exam
Physical Exam
Physical Exam:
GENERAL: Alert , in no apparent distress
EYE: pupils equal and reactive
NECK: Supple
ENT: o/p clr, mmm.
CARDIAC: Regular rate and rhythm .
LUNGS: Clear breath sounds bilaterally, no acute respiratory distress, no wheezes/rales/rhonchi
ABDOMEN: Soft, without focal tenderness, no r/g, no cvat, normal bowel sounds
NEUROLOGICAL: Alert and oriented, no focal neuro deficits
SKIN: Warm and dry, skin intact.
MUSCULOSKELETAL: No edema, well perfused. neg yvonne's sign
PSYCH: Normal and appropriate interaction.
Course
Orders/Labs/Results
Orders:
Orders
06/06/24 12:45
Test Result ONCE
06/06/24 12:53
Electrocardiogram (*1) Urgent
Reason for Study: Abdominal Pain
EKG- Treatment ONCE
06/06/24 12:57
Haloperidol Lactate [Haldol] 5 mg .ROUTE .STK-MED ONE
06/06/24 13:06
0.9% Sodium Chloride 1000 ml [Nss] 1,000 ml IV BOLUS
Haloperidol Lactate [Haldol] 2 mg IV NOW STA
06/06/24 14:26
Complete Blood Count/With Diff Urgent
Comprehensive Metabolic Panel Urgent
HCG, Serum Qualitative Screen Urgent
Lipase Urgent
Abnormal Lab Results
06/06/24
14:26
Absolute Lymphs (auto) 0.4 L 10^3/uL
(1.2-3.4)
Neutrophils % 90.7 H %
(42.2-75.2)
Lymphocytes % 5.9 L %
(20.5-51.1)
Chloride 108 H mmol/L
(98-107)
Carbon Dioxide 20 L mmol/L
(22-30)
BUN 19 H mg/dl
(7-17)
Total Bilirubin 1.4 H mg/dl
(0.2-1.3)
06/06/24 14:26
06/06/24 14:26
Vital Signs
Initial and Last Documented VS:
Initial Vital Signs
Temp Pulse Resp BP Pulse Ox
36.5 C 85 20 153/90 99
06/06/24 11:15 06/06/24 11:15 06/06/24 11:15 06/06/24 11:15 06/06/24 11:15
Last Documented Vital Signs
Temp Pulse Resp BP Pulse Ox
36.5 C 94 16 116/72 98
06/06/24 11:15 06/06/24 15:40 06/06/24 15:40 06/06/24 15:40 06/06/24 15:40
MDM/Problems Addressed
Differential Diagnosis Includes:
cannabis hyperemesis, pancreatitis
MDM/Problems Addressed:
24 y/o F with h/o CHS here with vomiting since thi smorning
no abd pain
last smoked 3 days ago
nontoxic
mild dry mouth
nontender abdomen
previuos ed vsitis reviewed
bili usually borderline high, similar today
haldol usually works
ekg showed qtc ok
after haldol and IVF pt feels better
dc home
*Critical Care Note
Total Time (30-74mins, 75-104mins- exclusive of procedures): Not Applicable
ED Attending Note
-
Portions of this chart may have been created with voice recognition software.� Occasional wrong word or��sound alike� substitutions may have occurred due to the inherent limitations of voice recognition software.
Discharge Plan
Departure
Patient Disposition: Home (Routine Discharge)
Date of Disposition: 06/06/24
Time of Disposition: 15:26
Patient with high blood pressure during this ER visit?: No
Condition: Fair
Covid-19: Not Applicable
Discharge Problem:
Cannabis use, unspecified, uncomplicated, Nausea with vomiting, unspecified
Instructions: Nausea and Vomiting, Adult (DC)
Prescriptions:
No Action
trazodone 50 mg Tablet
25 mg PO HS
fluoxetine [Prozac] 20 mg Capsule
20 mg PO DAILY
promethazine 25 mg tablet
25 mg PO QID PRN (Reason: nausea and vomiting) Qty: 14 0RF
ondansetron 4 mg tablet,disintegrating
4 mg PO Q8H PRN (Reason: nausea and vomiting) Qty: 10 0RF
Referrals:
Jazz Alberto CRNP [Family Provider] -
Activity Restrictions/Additional Instructions:
YOUR SYMPTOMS ARE PROBABLY RELATED TO CANNABIS USE
PLEASE TRY STOPPING FOR AT LEAST 4=6 WEEKS
RETURN FOR ANY CONCERNS.
Interventions
Interventions:
*Risk Screen - Suicide Last Done: 06/06/24 11:15
*General Assessment Last Done: 06/06/24 12:20
*Neglect/Abuse Screening Last Done: 06/06/24 12:24
*ED- Fall Risk Assessment Last Done: 06/06/24 12:20
*ED COVID-19 Vaccine History Last Done: 06/06/24 12:20
*Nursing Disposition Last Done: 06/06/24 15:40
JN-Jgjhwb-Frkxwvboou Assessment Last Done: 06/06/24 12:21
Discharge Date and Time
Discharge Date/Time: 06/06/24 15:40
Print Language: [place]
[2024-06-06 14:35] LABS: % Basophils 0.2 % (0-2); % Immature Granulocytes 0.3 % (0-0.5); % Lymphocytes 5.9 % (20.5-51.1); % Monocytes 2.9 % (1.7-9.3); % Neutrophils 90.7 % (42.2-75.2); Absolute Lymphocytes 0.4 10^3/uL (1.2-3.4); Absolute Monocytes 0.2 10^3/uL (0.1-0.6); Absolute Neutrophils 5.9 10^3/uL (1.4-6.5); Hematocrit 41.7 % (37.0-47.0); Hemoglobin 13.9 g/dL (12.0-16.0); Mean Corp Hgb Conc. 33.3 g/dL (33.0-37.0); Mean Corpuscular Hgb 29.6 pg (27.0-31.0); Mean Corpuscular Volume 88.9 fL (81.0-99.0); Mean Platelet Volume 9.7 fL (7.4-10.4); Nucleated Red Blood Cells % 0 %; Platelet Count 252 10^3/uL (130-400); Red Blood Cell Count 4.69 10^6/uL (4.20-5.40); Red Cell Dist. Width 12.5 % (11.5-14.5); White Blood Cell Count 6.5 10^3/uL (4.8-10.8)
[2024-06-06 14:49] LABS: HCG, Serum Qualitative Screen Negative
[2024-06-06 14:52] LABS: ALT (SGPT) 18 U/L (0-35); AST (SGOT) 23 U/L (14-36); Albumin 4.8 g/dl (3.5-5.0); Alkaline Phosphatase 51 U/L (38-126); Blood Urea Nitrogen 19 mg/dl (7-17); Calcium 9.9 mg/dl (8.4-10.2); Carbon Dioxide 20 mmol/L (22-30); Chloride 108 mmol/L (98-107); Estimated Creatinine Clearance 122 ml/min; Glucose 91 mg/dl (70-99); Lipase 266 U/L (23-300); Sodium 140 mmol/L (135-145); Total Bilirubin 1.4 mg/dl (0.2-1.3); Total Protein 7.5 g/dl (6.3-8.2); eGFR > 60.00
[2024-06-06 15:40] VITALS: BP 116/72
--- NOTE | 2024-06-06 17:07 | EDRN ---
Labs drawn by Delfina BRUMFIELD PCT at 14:20.
== END 2024-06-06 15:40 | disposition home or self-care (01) ==
LOC: EMR 11:06
PROVIDERS: Physician Assistant; EMERGENCY PHYSICIAN Student in an Organized Health Care Education/Training Program; FAMILY PHYSICIAN Nurse Practitioner Family
DX: R11.2 Nausea with vomiting, unspecified (principal); F12.90 Cannabis use, unspecified, uncomplicated; R01.1 Cardiac murmur, unspecified; F41.8 Other specified anxiety disorders; F90.9 Attention-deficit hyperactivity disorder, unspecified type; F17.290 Nicotine dependence, other tobacco product, uncomplicated; M41.9 Scoliosis, unspecified
CPT/HCPCS: 99283; 96374; 80053; 83690; 84703; 85025; 93005

== ENCOUNTER 2024-06-07 15:14 | Emergency (ER) | payer OTHER, SELFPAY ==
[2024-06-07 15:17] VITALS: BP 128/86
[2024-06-07 16:54] VITALS: BMI 26.0
--- NOTE | 2024-06-07 16:54 | ED.GENMED ---
History of Present Illness
General
Chief Complaint: Abdominal Symptoms
Source: patient
Exam Limitations: none
Time Seen by Provider: 06/07/24 16:45
Nursing documentation reviewed up to this point in time: agreed with
History of Present Illness
History of Present Illness:
24-year-old female with past medical history of anxiety depression cyclical vomiting marijuana use presents to the ER with persistent nausea vomiting. Patient was seen here yesterday received 2 separate doses of Haldol. She felt better however
today has been persistently vomiting. She has taken multiple hot showers however is still vomiting. She last used marijuana 5 days ago. She denies any fever/chills.
Past History
Past History
ED Past Medical History: Psychiatric (Depression, Anxiety, ADHD), Other (Scoliosis, cannabis hyperemesis syndrome) and Other (cyclic vomiting)
ED Past Surgical History: Other (Mastoidectomy)
Social History
Tobacco: Vaping
Alcohol: None
Drug: Marijuana
Personal: Single
Living: with family
Employment: Employed
Family History
Family History: Other (Noncontributory)
Review of Systems
Review of Systems
Allergies reviewed?: Yes
All Other Systems: ROS reviewed and negative except as documented in HPI and ROS
Constitutional: Reports no symptoms; Denies fever, fatigue or chills
Respiratory: Reports no symptoms
Cardiac: Reports no symptoms
ABD/GI: Reports nausea and vomiting; Denies abdominal pain
: Reports no symptoms
Musculoskeletal: Reports no symptoms
Skin: Reports no symptoms
Neurological: Reports no symptoms
Psychiatric: Reports no symptoms
Phy Exam
General Physical Exam
General Presentation: no apparent distress
General age: appears stated age
General Skin: warm and dry
General Habitus: normal
General Mental: alert
General Hydration: dry mucous membranes
Cardiovascular Exam
Cardiovascular Exam: regular rate/rhythm, no murmur and normal peripheral pulses
Pulmonary Exam
Pulmonary Exam: lungs clear and no respiratory distress
Gastrointestinal Exam
Gastrointestinal Exam: normal bowel sounds, non tender and soft
Neurological Exam
Neurological Exam: alert and oriented x3
Musculoskeletal Exam
Musculoskeletal Exam: full ROM
Skin Exam
Skin Exam: normal color and warm/dry
Psychiatric Exam
Psychiatric Exam: normal mood/affect
Course
Orders/Labs/Results
Orders:
Orders
06/07/24 16:56
IV Insert/Care/Rem.- Treatment PRN
0.9% Sodium Chloride 1000 ml [Nss] 1,000 ml IV BOLUS
Haloperidol Lactate [Haldol] 5 mg IV NOW STA
06/07/24 16:57
Famotidine [Pepcid] 20 mg IV NOW STA
Test Result ONCE
06/07/24 17:25
Complete Blood Count/With Diff Urgent
Comprehensive Metabolic Panel Urgent
HCG, Serum Qualitative Screen Urgent
Abnormal Lab Results
06/07/24
17:25
Lymphocytes % 19.3 L %
(20.5-51.1)
Carbon Dioxide 21 L mmol/L
(22-30)
Glucose 103 H mg/dl
(70-99)
Calcium 10.3 H mg/dl
(8.4-10.2)
Total Bilirubin 2.0 H mg/dl
(0.2-1.3)
Total Protein 8.5 H g/dl
(6.3-8.2)
Albumin 5.5 H g/dl
(3.5-5.0)
06/07/24 17:25
06/07/24 17:25
Vital Signs
Initial and Last Documented VS:
Initial Vital Signs
Temp Pulse Resp BP Pulse Ox
98.3 F 89 20 128/86 98
06/07/24 15:17 06/07/24 15:17 06/07/24 15:17 06/07/24 15:17 06/07/24 15:17
Last Documented Vital Signs
Temp Pulse Resp BP Pulse Ox
98.3 F 89 20 94/58 96
06/07/24 15:17 06/07/24 15:17 06/07/24 15:17 06/07/24 19:00 06/07/24 19:45
Utility Bill Complaints Investigator consulted with Physician
Utility Bill Complaints Investigator consulted with physician?: Yes
Name of Physician Consulted: Wang
MDM/Problems Addressed
MDM/Problems Addressed:
As documented patient is a 24-year-old female with marijuana use and cyclical vomiting cannabinoid hyperemesis in the past. She felt better yesterday after receiving Haldol and fluids however bacteria vomiting. Patient was given a dose of Haldol
with normal saline and is feeling much better here in the ER tolerating fluids feels well enough to go home vital signs are stable. Pt educated on marijuana cessation.
*Critical Care Note
Total Time (30-74mins, 75-104mins- exclusive of procedures): Not Applicable
ED Attending Note
-
Portions of this chart may have been created with voice recognition software.� Occasional wrong word or��sound alike� substitutions may have occurred due to the inherent limitations of voice recognition software.
Discharge Plan
Departure
Patient Disposition: Home (Routine Discharge)
Date of Disposition: 06/07/24
Time of Disposition: 19:43
Patient with high blood pressure during this ER visit?: No
Condition: Fair
Covid-19: Not Applicable
Discharge Problem:
Cannabis use, unspecified, uncomplicated, Nausea with vomiting, unspecified
Instructions: Nausea and Vomiting, Adult (DC)
Prescriptions:
No Action
trazodone 50 mg Tablet
25 mg PO HS
fluoxetine [Prozac] 20 mg Capsule
20 mg PO DAILY
promethazine 25 mg tablet
25 mg PO QID PRN (Reason: nausea and vomiting) Qty: 14 0RF
ondansetron 4 mg tablet,disintegrating
4 mg PO Q8H PRN (Reason: nausea and vomiting) Qty: 10 0RF
Referrals:
Jazz Alberto CRNP [Family Provider] -
Activity Restrictions/Additional Instructions:
As discussed it is recommended that you stop using marijuana as this is causing your symptoms. Please follow-up with your family doctor the next several days for reevaluation return if any worsening of symptoms.
Interventions
Interventions:
*Risk Screen - Suicide Last Done: 06/07/24 19:55
*General Assessment Last Done: 06/07/24 15:17
*Neglect/Abuse Screening Last Done: 06/07/24 17:38
*ED- Fall Risk Assessment Last Done: 06/07/24 17:38
*ED COVID-19 Vaccine History Last Done: 06/07/24 17:38
*Nursing Disposition Last Done: 06/07/24 19:55
CB-Ntxlbm-Zssscuztaj Assessment Last Done: 06/07/24 17:38
Discharge Date and Time
Discharge Date/Time: 06/07/24 20:01
Print Language: CUB[place]
[2024-06-07] MEDS: PEPCID 20 MG IV (17:26)
[2024-06-07] MEDS: NSS 1000 IV (17:26)
[2024-06-07] MEDS: HALDOL 5 MG IV (17:28)
[2024-06-07 17:38] VITALS: BP 126/73
[2024-06-07 17:41] LABS: % Basophils 0.5 % (0-2); % Immature Granulocytes 0.5 % (0-0.5); % Lymphocytes 19.3 % (20.5-51.1); % Monocytes 7.7 % (1.7-9.3); Absolute Lymphocytes 1.2 10^3/uL (1.2-3.4); Absolute Monocytes 0.5 10^3/uL (0.1-0.6); Absolute Neutrophils 4.4 10^3/uL (1.4-6.5); Hematocrit 42.3 % (37.0-47.0); Hemoglobin 14.7 g/dL (12.0-16.0); Mean Corp Hgb Conc. 34.8 g/dL (33.0-37.0); Mean Corpuscular Hgb 30.1 pg (27.0-31.0); Mean Corpuscular Volume 86.7 fL (81.0-99.0); Mean Platelet Volume 9.7 fL (7.4-10.4); Nucleated Red Blood Cells % 0 %; Platelet Count 312 10^3/uL (130-400); Red Blood Cell Count 4.88 10^6/uL (4.20-5.40); Red Cell Dist. Width 12.6 % (11.5-14.5); White Blood Cell Count 6.1 10^3/uL (4.8-10.8)
[2024-06-07 17:52] LABS: HCG, Serum Qualitative Screen Negative
[2024-06-07 17:56] LABS: ALT (SGPT) 20 U/L (0-35); AST (SGOT) 24 U/L (14-36); Albumin 5.5 g/dl (3.5-5.0); Alkaline Phosphatase 60 U/L (38-126); Blood Urea Nitrogen 16 mg/dl (7-17); Calcium 10.3 mg/dl (8.4-10.2); Carbon Dioxide 21 mmol/L (22-30); Chloride 103 mmol/L (98-107); Estimated Creatinine Clearance 122 ml/min; Glucose 103 mg/dl (70-99); Potassium 3.5 mmol/L (3.5-5.1); Sodium 140 mmol/L (135-145); Total Protein 8.5 g/dl (6.3-8.2); eGFR > 60.00
[2024-06-07 18:00] VITALS: BP 122/78
[2024-06-07 19:00] VITALS: BP 94/58
== END 2024-06-07 20:01 | disposition home or self-care (01) ==
LOC: EMR 15:14
PROVIDERS: Nurse Practitioner; EMERGENCY PHYSICIAN Emergency Medicine; FAMILY PHYSICIAN Nurse Practitioner Family
DX: R11.2 Nausea with vomiting, unspecified (principal); F41.9 Anxiety disorder, unspecified; F32.A Depression, unspecified; F17.290 Nicotine dependence, other tobacco product, uncomplicated
CPT/HCPCS: 99284; 96374; 96375; 96361; 80053; 84703; 85025

== ENCOUNTER 2024-06-09 18:37 | Inpatient (IN) | payer OTHER, SELFPAY ==
[2024-06-09 09:49] VITALS: BP 151/95
--- NOTE | 2024-06-09 11:24 | ED.GENMED ---
History of Present Illness
<Janiya Bragg PA-C - Last Filed: 06/09/24 22:33>
General
Chief Complaint: Abdominal Symptoms
Source: patient
Exam Limitations: none
Time Seen by Provider: 06/09/24 10:52
Nursing documentation reviewed up to this point in time: agreed with
History of Present Illness
History of Present Illness:
Patient is a 24-year-old female presenting with several days of intractable nausea and vomiting. This is patient's third visit emergency department visit for similar symptoms. Patient states symptoms started on and she has been unable to
tolerate p.o. food/liquid since. Patient does report temporary relief with hot showers/bath. Patient does also report mild abdominal pain along with a few episodes of diarrhea. No fever or urinary symptoms. No chest pain or shortness of breath.
Patient states symptoms seem very similar to other episodes of cyclical vomiting secondary to cannabis although has never had symptoms linger this long. Symptoms have resolved in emergency department at prior visits with Haldol although p.o. Zofran
at home is not working.
Of note�patient does also take tirzepatide. She did have an increase in dose the day prior to onset of symptoms. She is unsure if this may be related
Past History
<Janiya Bragg PA-C - Last Filed: 06/09/24 22:33>
Past History
ED Past Medical History: Psychiatric (Depression, Anxiety, ADHD), Other (Scoliosis, cannabis hyperemesis syndrome) and Other (cyclic vomiting)
ED Past Surgical History: Other (Mastoidectomy)
Social History
Tobacco: Vaping
Alcohol: None
Drug: Marijuana
Personal: Single
Living: with family
Employment: Employed
Family History
Family History: Other (Noncontributory)
Review of Systems
<Janiya Bragg PA-C - Last Filed: 06/09/24 22:33>
Review of Systems
Allergies reviewed?: Yes
All Other Systems: ROS reviewed and negative except as documented in HPI and ROS
Phy Exam
<Janiya Bragg PA-C - Last Filed: 06/09/24 22:33>
Physical Exam
Physical Exam:
Vitals: Hypertensive, otherwise stable vital signs. Afebrile
General: Patient is well appearing, no acute distress
Skin: Warm and dry, no rashes or lesions
Head: Normocephalic, atraumatic
Eyes: Sclera nonicteric. EOMs intact. No nystagmus.
Throat: Mildly dry mucous membranes. Protecting airway
Neck: Normal ROM, no cervical spine tenderness, no meningismus
Cardiac: Regular rate and rhythm, no murmurs.
Pulm: Normal respiratory effort, no wheezes, rales, rhonchi heard on exam.
Abdomen: Abdomen soft. Mild diffuse abdominal tenderness without rebound tenderness or guarding. No CVA tenderness
Extremities: No evidence of cyanosis or edema. Palpable DP pulses bilaterally
Neuro: AAOx3. Grossly intact.
Psychiatric: Normal affect.
Course
<Janiya Bragg PA-C - Last Filed: 06/09/24 22:33>
Orders/Labs/Results
Orders:
Orders
06/09/24 11:22
Famotidine [Pepcid] 20 mg IV NOW STA
Haloperidol Lactate [Haldol] 2 mg IV NOW STA
06/09/24 11:23
Electrocardiogram (*1) Urgent
Reason for Study: QTc Monitoring
EKG- Treatment ONCE
Test Result ONCE
06/09/24 11:30
CT Abd/pelvis W Iv Cont Urgent
Comment:
Reason For Exam: RUQ/epigastric pain
06/09/24 11:40
0.9% Sodium Chloride 1000 ml [Nss] 1,000 ml IV BOLUS
06/09/24 11:42
Complete Blood Count/With Diff Urgent
Comprehensive Metabolic Panel Urgent
HCG, Serum Qualitative Screen Urgent
Lipase Urgent
06/09/24 14:02
COVID-19 Antigen Urgent
Source: Nasal Swab
Influenza A+B Rapid Molecular Urgent
RODNEY Source: Nasal Swab
Specimen Description:
06/09/24 Dinner
Clear Liquid
06/09/24 15:26
Ondansetron Orally Disint [Zofran Odt (Orally Disintegrating)] 4 mg PO NOW STA
06/09/24 15:56
Ondansetron Injectable [Zofran] 4 mg IV NOW STA
06/09/24 18:00
Admit/Transfer Patient As Directed
Co-Sign Provider:
Level of Care: Inpatient admission
Assign to:: Medical/Surgical
Physician / Group: Hospitalist
Diagnosis: Intractable vomiting
Reason for Hospitalization: Intractable vomiting
Expected length of stay greater than two midnights?: Yes
ELOS- Estimated Length of Stay in days: 3
I certify the patient meets the requirements for IP care: Yes
06/09/24 18:01
PRN Pain Medication Management As Directed
May give lesser potent ordered pain med per pt: Yes
preference::
Protocol:: Medication orders for pain may be administered in a
manner that supports deferring to patient preference
when the pt is:
- Requesting an ordered lesser potent pain medication.
Least to most potent pain medications are defined
as: acetaminophen < NSAID < tramadol < opioids
(morphine, oxycodone, hydromorphone).
- Requesting a lesser dose of the same medication IF
ORDERED.
- Requesting a less intrusive route of administration
if both routes are prescribed by the provider (PO <
IV).
06/09/24 18:03
Code Status As Directed
Resuscitation Status: Full Code
06/09/24 18:07
Activity As Directed
Activity Level: Ambulate
Vital Signs As Directed
Frequency: Per unit guidelines
06/09/24 18:10
Pantoprazole [Protonix IV] 40 mg IV NOW STA
06/09/24 18:16
0.9% Sodium Chloride [Nss (Preservative Free)] 10 ml IV NOW STA
06/09/24 19:58
0.9% Sodium Chloride 1000 ml [Nss] 1,000 ml IV 75 mls/hr
Acetaminophen [Tylenol] 650 mg PO Q4HPRN PRN
Bisacodyl [Dulcolax] 10 mg RECTAL U90MKID PRN
Docusate W/Senna [Senokot-S] 1 tablet PO BIDPRN PRN
Enoxaparin Sodium [Lovenox] 40 mg SC QPM
Polyethylene Glycol Powder [Miralax] 17 grams PO DAILYPRN PRN
Prochlorperazine [Compazine] 5 mg IV Q6HPRN PRN
06/09/24 19:58
Head of Bed-Restrictions As Directed
DX Deep Vein Thrombosis Video Routine
06/09/24 20:59
Urine Drug Abuse Screen Stat
Date Specimen was Collected: 06/09/24
Time Specimen was Collected: 20:48
06/09/24 22:00
Trazodone [Desyrel] 50 mg PO HS
06/10/24 06:00
Basic Metabolic Panel IN AM
Complete Blood Count/No Diff IN AM
Magnesium IN AM
06/10/24 08:00
Aripiprazole [Abilify] 2 mg PO DAILY
Fluoxetine HCl [Prozac] 20 mg PO DAILY
Pantoprazole [Protonix] 40 mg PO DAILY
Abnormal Lab Results
06/09/24
11:42
Absolute Lymphs (auto) 1.1 L 10^3/uL
(1.2-3.4)
Neutrophils % 77.1 H %
(42.2-75.2)
Lymphocytes % 17.7 L %
(20.5-51.1)
Chloride 108 H mmol/L
(98-107)
Carbon Dioxide 20 L mmol/L
(22-30)
Total Bilirubin 1.6 H mg/dl
(0.2-1.3)
06/09/24 11:42
06/09/24 11:42
Vital Signs
Initial and Last Documented VS:
Initial Vital Signs
Temp Pulse Resp BP Pulse Ox
98.1 F 91 20 151/95 98
06/09/24 09:49 06/09/24 09:49 06/09/24 09:49 06/09/24 09:49 06/09/24 09:49
Last Documented Vital Signs
Temp Pulse Resp BP Pulse Ox
98.5 F 90 18 111/73 99
06/09/24 20:27 06/09/24 20:27 06/09/24 20:27 06/09/24 20:27 06/09/24 20:27
<Miguel A Boggs MD - Last Filed: 06/09/24 11:33>
Orders/Labs/Results
Orders:
Orders
06/09/24 11:22
Famotidine [Pepcid] 20 mg IV NOW STA
Haloperidol Lactate [Haldol] 2 mg IV NOW STA
06/09/24 11:23
Electrocardiogram (*1) Urgent
Reason for Study: QTc Monitoring
EKG- Treatment ONCE
Test Result ONCE
06/09/24 11:30
CT Abd/pelvis W Iv Cont Urgent
Comment:
Reason For Exam: RUQ/epigastric pain
06/09/24 11:40
0.9% Sodium Chloride 1000 ml [Nss] 1,000 ml IV BOLUS
06/09/24 11:42
Complete Blood Count/With Diff Urgent
Comprehensive Metabolic Panel Urgent
HCG, Serum Qualitative Screen Urgent
Lipase Urgent
06/09/24 14:02
COVID-19 Antigen Urgent
Source: Nasal Swab
Influenza A+B Rapid Molecular Urgent
RODNEY Source: Nasal Swab
Specimen Description:
06/09/24 Dinner
Clear Liquid
06/09/24 15:26
Ondansetron Orally Disint [Zofran Odt (Orally Disintegrating)] 4 mg PO NOW STA
06/09/24 15:56
Ondansetron Injectable [Zofran] 4 mg IV NOW STA
06/09/24 18:00
Admit/Transfer Patient As Directed
Co-Sign Provider:
Level of Care: Inpatient admission
Assign to:: Medical/Surgical
Physician / Group: Hospitalist
Diagnosis: Intractable vomiting
Reason for Hospitalization: Intractable vomiting
Expected length of stay greater than two midnights?: Yes
ELOS- Estimated Length of Stay in days: 3
I certify the patient meets the requirements for IP care: Yes
06/09/24 18:01
PRN Pain Medication Management As Directed
May give lesser potent ordered pain med per pt: Yes
preference::
Protocol:: Medication orders for pain may be administered in a
manner that supports deferring to patient preference
when the pt is:
- Requesting an ordered lesser potent pain medication.
Least to most potent pain medications are defined
as: acetaminophen < NSAID < tramadol < opioids
(morphine, oxycodone, hydromorphone).
- Requesting a lesser dose of the same medication IF
ORDERED.
- Requesting a less intrusive route of administration
if both routes are prescribed by the provider (PO <
IV).
06/09/24 18:03
Code Status As Directed
Resuscitation Status: Full Code
06/09/24 18:07
Activity As Directed
Activity Level: Ambulate
Vital Signs As Directed
Frequency: Per unit guidelines
06/09/24 18:10
Pantoprazole [Protonix IV] 40 mg IV NOW STA
06/09/24 18:16
0.9% Sodium Chloride [Nss (Preservative Free)] 10 ml IV NOW STA
06/09/24 19:58
0.9% Sodium Chloride 1000 ml [Nss] 1,000 ml IV 75 mls/hr
Acetaminophen [Tylenol] 650 mg PO Q4HPRN PRN
Bisacodyl [Dulcolax] 10 mg RECTAL [id number] PRN
Docusate W/Senna [Senokot-S] 1 tablet PO BIDPRN PRN
Enoxaparin Sodium [Lovenox] 40 mg SC QPM
Polyethylene Glycol Powder [Miralax] 17 grams PO DAILYPRN PRN
Prochlorperazine [Compazine] 5 mg IV Q6HPRN PRN
06/09/24 19:58
Head of Bed-Restrictions As Directed
DX Deep Vein Thrombosis Video Routine
06/09/24 20:59
Urine Drug Abuse Screen Stat
Date Specimen was Collected: 06/09/24
Time Specimen was Collected: 20:48
06/09/24 22:00
Trazodone [Desyrel] 50 mg PO HS
06/10/24 06:00
Basic Metabolic Panel IN AM
Complete Blood Count/No Diff IN AM
Magnesium IN AM
06/10/24 08:00
Aripiprazole [Abilify] 2 mg PO DAILY
Fluoxetine HCl [Prozac] 20 mg PO DAILY
Pantoprazole [Protonix] 40 mg PO DAILY
Abnormal Lab Results
06/09/24
11:42
Absolute Lymphs (auto) 1.1 L 10^3/uL
(1.2-3.4)
Neutrophils % 77.1 H %
(42.2-75.2)
Lymphocytes % 17.7 L %
(20.5-51.1)
Chloride 108 H mmol/L
(98-107)
Carbon Dioxide 20 L mmol/L
(22-30)
Total Bilirubin 1.6 H mg/dl
(0.2-1.3)
06/09/24 11:42
06/09/24 11:42
Vital Signs
Initial and Last Documented VS:
Initial Vital Signs
Temp Pulse Resp BP Pulse Ox
98.1 F 91 20 151/95 98
06/09/24 09:49 06/09/24 09:49 06/09/24 09:49 06/09/24 09:49 06/09/24 09:49
Last Documented Vital Signs
Temp Pulse Resp BP Pulse Ox
98.5 F 90 18 111/73 99
06/09/24 20:27 06/09/24 20:27 06/09/24 20:27 06/09/24 20:27 06/09/24 20:27
<Janiya Bragg PA-C - Last Filed: 06/09/24 22:33>
MDM/Problems Addressed
Differential Diagnosis Includes:
Not limited to: Cyclical vomiting secondary to cannabis use, medication side effect, pancreatitis, gastroenteritis, appendicitis, etc.
MDM/Problems Addressed:
24-year-old female presents with intractable nausea and vomiting, unable to tolerate p.o. intake for the past 5 days. Does report mild diarrhea and mild abdominal pain. No fever or urinary symptoms. This is patient's third visit in 4 days for
similar complaints unable to manage symptoms at home with p.o. Zofran. Does have significant history of cannabis induced cyclical vomiting which states feels very similar. Patient vital signs acceptable on arrival. She is afebrile. Physical exam
as above. Will check labs, viral studies. Given persistent vomiting and multiple ER visits�will obtain CT imaging to rule out intra-abdominal infection/other process. Will give IV fluids, famotidine, Haldol and reassess.
Update: Labs reviewed no leukocytosis. Mild acidosis likely from GI losses. Otherwise labs unremarkable. Viral studies negative. CT abdomen/pelvis shows no acute intra-abdominal process. On reassessment�patient has had no vomiting and feels
better, only with mild nausea. Will trial p.o. Zofran.
Update: Patient did not tolerate p.o. Zofran. Will give IV Zofran and plan for p.o. challenge and hopeful discharge home.
Update: Patient initially tolerated sips of water, applesauce after IV Zofran although during discharge process�patient did began vomiting again. Given persistent vomiting despite multiple rounds of IV antiemetics�will admit patient to hospital for
further management. Do suspect cyclical vomiting secondary to cannabis use although it is possibly related to recent increase in tirzepeitde, as well. Patient accepted by hospital service in stable condition for further management.
Chronic conditions affecting care:
N/A
Acute Exacerbation and/or Progression of Chronic Illness:
N/A
<Janiya Bragg PA-C - Last Filed: 06/09/24 22:33>
*Radiology
Radiology exam reviewed: preliminary read by ED provider and radiology read reviewed
*Pulse Oximetry
Patient hypoxic: no
*EKG
Interpreted by ED Provider?: Yes
EKG Intrepretation Date: 06/09/24
Interpretation: abnormal
Comparison EKG: no changes
Heart Rate: 77
Rate: normal
Rhythm: sinus
[place]: normal axis
Interval: normal QT interval
QRS Pattern: normal QRS
Ischemia: no ischemia
*Clock Repairer Interpretation
Rate: Clock Repairer- N/A
*Critical Care Note
Total Time (30-74mins, 75-104mins- exclusive of procedures): Not Applicable
Data Reviewed
Review of Other/Old Records Reveals: Records (Prior ED records from 06/06/2024 and 06/07/2024-discharged with suspected cannabis hyperemesis syndrome)
<Janiya Bragg PA-C - Last Filed: 06/09/24 22:33>
Patient Management
Discussion with other providers: Hospitalist
Escalation/DeEscalation of care consider admission/obs:
Admit for further management, antiemetics, IV fluids
ED Attending Note
<Janiya Bragg PA-C - Last Filed: 06/09/24 22:33>
-
Portions of this chart may have been created with voice recognition software.� Occasional wrong word or��sound alike� substitutions may have occurred due to the inherent limitations of voice recognition software.
<Miguel A Boggs MD - Last Filed: 06/09/24 11:33>
ED Attending Note
Patient seen and examined by attending physician: Yes
I performed the substantive portion of visit, reviewed & personally made and approve the management plan that is documented in note by myself or DONELL.: Yes
ED Attending Note:
Patient is a 24-year-old woman with history of cyclic vomiting presenting to the emergency department with vomiting. Patient states that for the past few days she has had nausea vomiting. She does have p.o. Zofran at home however given the
vomiting has been unable to tolerate it. She states that this feels that her cannabis hyperemesis syndrome. She last used last week. However this time she notes that she been having some abdominal pain which is different. Per chart but she has
had 2 ED visits for the same. She states that Haldol usually improves her symptoms. No fevers or chills. No diarrhea. She did increase her dose of her tirzepatide
On my evaluation patient is very anxious and upset about the vomiting. Her oral mucosa is moist. Her abdomen does have some mild tenderness in the right upper quadrant and epigastric region. No rebound or guarding.
21-year-old woman with history of cyclic vomiting presented to the emergency department vomiting for the past 2 days. Vitals are unremarkable and exam does show mild right upper quadrant epigastric tenderness palpation. Differential consists of
cannabinoid hyperemesis versus viral versus side effect from her medication. Will check blood work give fluids and Haldol. However given that this is patient's third ED visit with a mild abdominal pain we will proceed with CT scan of the abdomen
as well. Dispo pending results and reassessment
Discharge Plan
Departure
Patient Disposition: Admit
Date of Disposition: 06/09/24
Time of Disposition: 17:13
Presentation/result/management discussed w/ accepting MD/DO: Hospitalist
Discharge Problem:
Intractable cyclical vomiting syndrome
Interventions
Interventions:
*Risk Screen - Suicide Last Done: 06/09/24 09:49
*General Assessment Last Done: 06/09/24 09:53
*Neglect/Abuse Screening Last Done: 06/09/24 15:50
*ED- Fall Risk Assessment Last Done: 06/09/24 15:49
*ED COVID-19 Vaccine History Last Done: 06/09/24 22:01
*Nursing Disposition Last Done: 06/09/24 20:05
QH-Okyqeb-Nvhxoyzdkm Assessment Last Done: 06/09/24 12:02
Discharge Date and Time
Discharge Date/Time: 06/09/24 20:05
[2024-06-09] MEDS: PEPCID 20 MG IV (11:36)
[2024-06-09] MEDS: HALDOL 2 MG IV (11:36)
[2024-06-09] MEDS: NSS 1000 IV ×2 (11:40→20:11)
[2024-06-09 13:07] VITALS: BP 112/69
[2024-06-09 13:14] LABS: % Basophils 0.2 % (0-2); % Immature Granulocytes 0.2 % (0-0.5); % Lymphocytes 17.7 % (20.5-51.1); % Monocytes 4.8 % (1.7-9.3); % Neutrophils 77.1 % (42.2-75.2); Absolute Lymphocytes 1.1 10^3/uL (1.2-3.4); Absolute Monocytes 0.3 10^3/uL (0.1-0.6); Absolute Neutrophils 4.6 10^3/uL (1.4-6.5); Hematocrit 41.3 % (37.0-47.0); Hemoglobin 13.8 g/dL (12.0-16.0); Mean Corp Hgb Conc. 33.4 g/dL (33.0-37.0); Mean Corpuscular Hgb 29.2 pg (27.0-31.0); Mean Corpuscular Volume 87.5 fL (81.0-99.0); Mean Platelet Volume 9.5 fL (7.4-10.4); Nucleated Red Blood Cells % 0 %; Platelet Count 252 10^3/uL (130-400); Red Blood Cell Count 4.72 10^6/uL (4.20-5.40); Red Cell Dist. Width 12.5 % (11.5-14.5)
[2024-06-09 13:27] LABS: HCG, Serum Qualitative Screen Negative
[2024-06-09 13:31] LABS: ALT (SGPT) 16 U/L (0-35); AST (SGOT) 23 U/L (14-36); Albumin 4.5 g/dl (3.5-5.0); Alkaline Phosphatase 47 U/L (38-126); Blood Urea Nitrogen 13 mg/dl (7-17); Calcium 9.3 mg/dl (8.4-10.2); Carbon Dioxide 20 mmol/L (22-30); Chloride 108 mmol/L (98-107); Glucose 80 mg/dl (70-99); Lipase 260 U/L (23-300); Potassium 3.6 mmol/L (3.5-5.1); Sodium 140 mmol/L (135-145); Total Bilirubin 1.6 mg/dl (0.2-1.3); Total Protein 7.3 g/dl (6.3-8.2); eGFR > 60.00
[2024-06-09 14:07] VITALS: BP 135/88
[2024-06-09 14:36] LABS: COVID-19 Antigen Negative (Negative)
[2024-06-09 15:00] VITALS: BP 140/84
[2024-06-09] MEDS: ZOFRAN ODT (ORALLY DISINTEGRATING) 4 MG PO (15:37)
[2024-06-09] MEDS: ZOFRAN 4 MG IV (16:09)
--- NOTE | 2024-06-09 18:00 | HPS.HSE ---
Family Physician
<Jennifer Hernandez MD, Resident - Last Filed: 06/09/24 18:36>
-
Family Physician: LEANA Simons
Chief Complaint
<Jennifer Hernandez MD, Resident - Last Filed: 06/09/24 18:36>
-
Intractable vomiting since
History of Present Illness
Patient is a 24-year-old female with past medical history of anxiety/depression, who presented to the ED following constant nausea and multiple episodes of vomiting. This is the third time she has presented to the ED during the past 4 days with
similar complaint. Mother and brother(Ron) present at bedside.
Mentions she can hold down liquids but not food. Does not report dining out or getting food from outside before symptoms started. No sick contacts around her and no one with the same symptoms in the household. Denies any abdominal pain/cramps.
Denies diarrhea or history of IBS. Denies any urinary symptoms. She had a short travel to [place] mid to end of May, but did not have any symptoms at that time. New changes in medications include starting Tirzepatide in April, with recent
increase in dose although not sure what dose she is currently on. Beta-hCG negative.
Reports having the symptoms from about 2 years ago periodically.
Her vitals have been stable in the ED. Initial labs show electrolytes within normal limits. LFTs are normal. No leukocytosis and afebrile.
Medical History
<Jennifer Hernandez MD, Resident - Last Filed: 06/09/24 18:36>
Past Medical History
Past Medical History: Reports Psychiatric (Anxiety depression)
Additional Past Medical History:
Cyclic vomiting
Past Surgical History: Reports Other (Mastoidectomy)
Additional Past Surgical History:
Mastoidectomy
Social History
Tobacco: Non-smoker
Alcohol: Occasional (1-2 drinks per week)
Drug: Marijuana (Smokes daily)
Personal: Single
Living: Alone
Family History
Family History: Not pertinent
Allergies / Home Medications
Allergies reflects when Allergies were last updated in [facility].
Home Medications with original date entered in [facility]
Allergy/Medication List:
Allergies
Allergy/AdvReac Type Severity Reaction Status Date / Time
No Known Allergies Allergy Verified 06/09/24 09:50
Home Medications
trazodone 50 mg tablet 25 mg PO MENTAL HEALTH 03/20/23
fluoxetine 20 mg capsule (Prozac) 20 mg PO DAILY 07/27/23
promethazine 25 mg tablet 25 mg PO QID PRN nausea and vomiting #14 tabs 07/27/23
ondansetron 4 mg disintegrating tablet 4 mg PO Q8H PRN nausea and vomiting #10 tabs 04/03/24
Review of Systems
<Jennifer Hernandez MD, Resident - Last Filed: 06/09/24 18:36>
-
History Source: Patient
A 12 point ROS was completed and negative except as noted: Yes
Cardiac: Denies Chest Pain
Abdomen/GI: Reports Nausea and Vomiting; Denies Diarrhea
: Denies Dysuria, Frequency or Flank Pain
Neurological: Denies Dizzy or Headache
Physical Exam
<Jennifer Hernandez MD, Resident - Last Filed: 06/09/24 18:36>
Vital Signs
Vital Signs
Temp Pulse Resp BP Pulse Ox
98.1 F 110 20 140/84 99
06/09/24 09:49 06/09/24 14:07 06/09/24 09:49 06/09/24 15:00 06/09/24 15:00
Physical Exam
General: Well Developed, Well Nourished, No Apparent Distress and Conversant
HEENT: NormoCephalic, Anicteric and Moist mucous membranes
Respiratory: Clear and Non Labored Respirations; No Wheezes or Crackles
Cardiac: S1/S2, Regular Rhythm and Tachycardia
GI: Soft, Non Tender, Non Distended and Normal Bowel Sounds
Musculoskeletal: No Edema
Skin: Warm and Dry
Neuro: Awake, Alert, Oriented and AO x 3; No Tremors
Psych: Calm
Laboratory Results
<Jennifer Hernandez MD, Resident - Last Filed: 06/09/24 18:36>
-
06/09/24 11:42
06/09/24 11:42
Laboratory Results
Total Bilirubin 1.6 mg/dl (0.2-1.3) H 06/09/24 11:42
AST 23 U/L (14-36) 06/09/24 11:42
ALT 16 U/L (0-35) 06/09/24 11:42
Alkaline Phosphatase 47 U/L (38-126) 06/09/24 11:42
Lipase 260 U/L (23-300) 06/09/24 11:42
Data Reviewed
<Jennifer Hernandez MD, Resident - Last Filed: 06/09/24 18:36>
-
CT Scan: Report Reviewed by me and Discussed with Patient
Medical Tests (Nuc Med, Echo, EKG etc): Discussed with Patient
Lab Data: Labs Reviewed by me, Discussed with Physician and Discussed with Patient
Impression/Plan
<Jennifer Hernandez MD, Resident - Last Filed: 06/09/24 18:36>
-
24-year-old female with past medical history of anxiety/depression, cyclical vomiting, marijuana use presented to the ER with persistent nausea and vomiting since .
#Intractable nausea and vomiting
#Cannabis Hyperemesis Syndrome
-admit to med/surg
-s/p one dose of haldol in ER
-minimal benefit with zofran
-ordered compazine 5mg q6
-Started IV fluid with NSS
-urine drug screen added on
-COVID, influenza A& B negative
-B-hcg negative
-CT abd/pelvis unremarkable
-Lipase WNL
-Protonix 40 IV daily
-Clears for now; advance diet as tolerated
-Trend CBC, BMP
-Advised patient on marijuana cessation
- Advised to hold zepbound which she started in apr 2024
-Ekg reviewed; Qtc normal
#Anxiety/Depression
# History of ADHD
-Per patient she is on Prozac 20 mg, Abilify 2 mg and trazodone 50 mg. Also on Klonopin 0.25 mg (1-2 times a week) prn
DVT prophylaxis
Lovenox 40 SC
CODE: Full code
<Sidney Sharpe MD, Resident - Last Filed: 06/09/24 18:27>
-
Impression: 24-year-old female with past medical history of anxiety&depression, cyclical vomiting, marijuana use presented to the ER with persistent nausea vomiting.
#Intractable nausea and vomiting
# Cannabis Hyperemesis Syndrome
-s/p one dose of haldol in ER
- minimal benefit with zofran
-admit to med/surg
-ordered compazine 5mg q6
-maintain IV fluid for now
-check urine drug screen
-covid flu negative
-B-hcg negative
-CT abd unremarkable
-Lipase WNL
-IV PPI daily
-Clear for now; advance tomorrow if tolerated
-monitor labs in the am
-Educated patient on marijuana cessation
-Ekg reviewed; Qtc normal
#Anxiety/Depression
#h/o ADHD
- continue trazadone and prozac
- advise to hold zepbound which she started in apr 2024
CODE: Full code
--- NOTE | 2024-06-09 18:12 | W.PN.UPDATE ---
Update Note
Progress Note Update
I personally performed a history and physical exam of the patient and discussed management with the resident. I reviewed the resident's note and agree with the documented findings and plan of care HPI/CC except for changes in my documentation
24-year-old female with intractable nausea and vomiting this is a third emergency room visit for similar symptoms. Started and unable to tolerate p.o. also recently increased the dose of Tirzapatide. She is not sure of the doses. Denies
any sick contacts she traveled to [place] and May, but started after that. No head injury, no headache no abdominal pain.
CT abdomen and pelvis with IV contrast-no significant abnormalities
EKG-normal sinus rhythm. QTc 448
CVS: S1-S2 normal
Chest: CTA B/L
Abdomen: Soft, NT , Bowel sounds present
Extremities: No edema
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
# Intractable nausea and vomiting
Check urine toxicology screen
History of marijuana use which can cause vomiting
Also on Tirzapatide which can cause vomiting dose was recently increased, Advised to stop
Symptomatic treatment antiemetics.
Add PPI for now
N.p.o. with IV fluids
CAT scan without any acute changes or obstruction
# History of marijuana use-Advised to stop
# Anxiety and depression. H/O Drug over dose in the past -on Prozac 20 mg, Abilify 2 mg and trazodone 50 mg per pt. Also on Klonopin 0.25 mg she takes 1 oe 2 times a week prn.
# Scoliosis
# Right mastoidectomy age 14 at [facility]-benign mass
# DVT prophylaxis-Lovenox
# Full code
D/W mom at bed side
[2024-06-09] MEDS: NSS (PRESERVATIVE FREE) 10 ML IV (18:32)
[2024-06-09] MEDS: PROTONIX IV 40 MG IV (18:32)
--- NOTE | 2024-06-09 19:23 | PHANOTE ---
med rec tech: patient states that she gets weekly shots on Wednesdays of Tirzepatide at a business called [employer]', but she doesn't know the dose.
[2024-06-09 20:22] VITALS: BMI 29.0
[2024-06-09] MEDS: COMPAZINE 5 MG IV (20:26)
[2024-06-09 20:27] VITALS: BP 111/73
--- NOTE | 2024-06-09 20:50 | PTCARENOTE ---
Received patient from ED at approx 2220. Patient ambulated to bed. Alert and oriented x 3. Vitals signs WNL. Patient oriented to room. Call [facility] within reach.
[2024-06-09 21:17] LABS: Amphetamines Negative (Negative); Barbiturates Negative (Negative); Benzodiazepines Positive (Negative); Buprenorphine Negative (Negative); Cocaine Negative (Negative); Marijuana Positive (Negative); Methadone Negative (Negative); Methamphetamines Negative (Negative); Opiates Negative (Negative); Phencyclidine Negative (Negative); Tricyclic Antidepressants Negative (Negative)
[2024-06-09 21:36] LABS: Fentanyl, Urine Negative (Negative)
[2024-06-09] MEDS: DESYREL 50 MG PO (21:59)
[2024-06-09 23:10] VITALS: BP 130/86
[2024-06-10 07:56] VITALS: BP 148/96
[2024-06-10] MEDS: ABILIFY 2 MG PO (08:20)
[2024-06-10] MEDS: PROTONIX 40 MG PO (08:20)
[2024-06-10] MEDS: PROZAC 20 MG PO (08:20)
[2024-06-10 08:21] LABS: Hematocrit 39.6 % (37.0-47.0); Hemoglobin 13.1 g/dL (12.0-16.0); Mean Corp Hgb Conc. 33.1 g/dL (33.0-37.0); Mean Corpuscular Hgb 29.2 pg (27.0-31.0); Mean Corpuscular Volume 88.2 fL (81.0-99.0); Mean Platelet Volume 9.9 fL (7.4-10.4); Platelet Count 282 10^3/uL (130-400); Red Blood Cell Count 4.49 10^6/uL (4.20-5.40); Red Cell Dist. Width 12.5 % (11.5-14.5); White Blood Cell Count 5.6 10^3/uL (4.8-10.8)
[2024-06-10] MEDS: COMPAZINE 5 MG IV ×3 (08:23→20:29)
[2024-06-10] MEDS: NSS 1000 IV (08:24)
[2024-06-10 09:02] LABS: Blood Urea Nitrogen 9 mg/dl (7-17); Calcium 9.4 mg/dl (8.4-10.2); Carbon Dioxide 17 mmol/L (22-30); Chloride 107 mmol/L (98-107); Estimated Creatinine Clearance > 125 ml/min; Glucose 88 mg/dl (70-99); Potassium 3.4 mmol/L (3.5-5.1); Sodium 139 mmol/L (135-145); eGFR > 60.00
--- NOTE | 2024-06-10 09:12 | PTCARENOTE ---
06/10- Patient requests Haldol, stating, 'Haldol helps with Hyperemesis Cannibis Syndrome. I think that's what I have.' When asking how much Cannibis patient ingests, she states, 'I don't know, but it's a lot sometimes.' Discussed self-care r/t
hydration and resting. Notified Physician of Haldol request.
[2024-06-10] MEDS: KCL 270 MEQ IV (13:45)
--- NOTE | 2024-06-10 15:08 | W.PN.HOSP.TC ---
Today's Communication/Plan
-
Continue monitoring for resolution of symptoms. Will advance diet as nausea and vomiting continue to resolve. Will check BMP for resolution of hypokalemia.
Assessment / Plan
Assessment / Plan
Assessment:
24 year old female with a past medical history of anxiety, depression and cyclic vomiting came to the ED following constant nausea and vomiting starting last . Patient had increased her dose of Tirzapatide the day before her symptoms began.
She came multiple times to the ER with the same symptoms and this was her third visit and finally got admitted. CT scan showed no abnormalities and urine toxicology screen was positive for Benzos and Majriuana. Patient states that the last time she
had Marijuana was around 2 days ago and that she had a lot. Patient was started on supportive therapy with IV fluids and anti nausea medications.
CT Abd/pelvis W Iv Cont (06/09/2024): No significant abnormality identified in the abdomen or pelvis, as described above
Plan:
#Intractable nausea and vomiting
-Urine toxicology showed positive for Benzo and Marijuana
-Tirzapatide dose was increased which may have percipitated symptoms
-No abnormalities seen on CT scan
-Treat with supportive therapy including Anti-emetics, PPI, IV fluids
-Clear liquid diet as tolerated, will upgrade diet as patient's symptoms improve
-Treatment with Zofran and Compazine: QTc interval was 448
#Hypokalemia
-Most likely due to vomiting
-Repleted IV due to nausea and vomiting
#History of Marijuana use
-Patient counseled to stop use
-Last known use was two days ago according to patient
-Not using the drug should bring resolution of symptoms
#Anxiety and Depression
-continue with current medications (Fluoxetine, Abilify, Trazodone) and Clonazepam (0.25mg as needed)
#Scoliosis
DVT Prophylaxis- Lovenox
Full Code
Anticipated Discharge: Within 24 hours
Subjective/Interval History
-
Date of Service: June 10, 2024
Patient says that she has continued to have worsening nausea and has vomited mainly bile this morning. She has been having trouble keeping her food down and says that she hasn't had an actual meal since last Monday. She says that her symptoms
tend to get worse over time then better after she vomits.
Objective Data
-
Labs:
Laboratory Results
06/10/24
07:58
WBC 5.6
Hgb 13.1
Hct 39.6
Plt Count 282
Sodium 139
Potassium 3.4 L
Chloride 107
Carbon Dioxide 17 L
BUN 9
Creatinine 0.6
Glucose 88
Calcium 9.4
Vital Signs:
Vital Signs
Temp Pulse Resp BP Pulse Ox
97.6 F 77 20 148/96 99
06/10/24 07:56 06/10/24 07:56 06/10/24 07:56 06/10/24 07:56 06/10/24 08:25
I&O
06/09/24 06/10/24 06/11/24
06:59 06:59 06:59
Intake Total 1020 / 1020
Balance 1020 / 1020
Review of Systems
-
History Source: Patient
Constitutional: Reports No Appetite; Denies Fever
EENT: Reports No Symptoms Reported
Respiratory: Reports No Symptoms
Cardiac: Reports No Symptoms
Abdomen/GI: Reports Nausea, Vomiting and Diarrhea; Denies Abdominal Pain
Skin: Reports No Symptoms
Neuro: Reports No Symptoms
Psych: Reports Anxious
Physical Exam
-
General: Well Developed, Well Nourished and Appears in Distress
HEENT: Normocephalic and Atraumatic
Respiratory: Clear to Auscultation and Non Labored Respirations
Cardiac: Regular Rhythm and S1/S2; Negative Murmur
GI: Soft, Nontender, Nondistended and Normal Bowel Sounds
Musculoskeletal: No Clubbing, No Cyanosis and No Edema
Skin: Warm
Neuro: Awake, Alert, Oriented and AO x 3
Psych: Anxious
Data Reviewed
-
Labs: Labs Reviewed by me, Discussed with Physician, Discussed with Nurse and Discussed with Patient
[2024-06-10 15:11] VITALS: BP 124/76
--- NOTE | 2024-06-10 15:13 | W.PN.UPDATE ---
Update Note
Progress Note Update
24-year-old female with intractable nausea and vomiting this is a third emergency room visit for similar symptoms. Started and unable to tolerate p.o. also recently increased the dose of Tirzapatide. She is not sure of the doses. Denies
any sick contacts she traveled to [place] and May, but started after that. No head injury, no headache no abdominal pain.
CT abdomen and pelvis with IV contrast-no significant abnormalities
EKG-normal sinus rhythm. QTc 448
Denies any headaches or abdominal pain. She has pain in the muscles when she vomits otherwise no pain.
CVS: S1-S2 normal
Chest: CTA B/L
Abdomen: Soft, NT , Bowel sounds present
Extremities: No edema
# Intractable nausea and vomiting
Check urine toxicology screen
History of marijuana use which can cause vomiting
Also on Tirzapatide which can cause vomiting dose was recently increased, Advised to stop
Symptomatic treatment antiemetics.
Added PPI for now
N.p.o. with IV fluids, Clear as tolerated
Symptomatic treatment with Compazine and Zofran-QTc was okay
CAT scan without any acute changes or obstruction
# Hypokalemia-replace IV due to nausea and vomiting
# History of marijuana use-Advised to stop
# Anxiety and depression. H/O Drug over dose in the past -on Prozac 20 mg, Abilify 2 mg and trazodone 50 mg per pt. Also on Klonopin 0.25 mg she takes 1 or 2 times a week prn.
# Scoliosis
# Right mastoidectomy age 14 at [facility]-benign mass
# DVT prophylaxis-Lovenox
# Full code
Discussed with nursing
Discussed with mother at bedside
[2024-06-10 19:30] VITALS: BP 131/91
[2024-06-10] MEDS: DESYREL 50 MG PO (21:13)
[2024-06-10] MEDS: ZOFRAN 4 MG IV (21:16)
[2024-06-10 23:08] VITALS: BP 132/63
[2024-06-11] MEDS: NSS 1000 IV (01:25)
[2024-06-11] MEDS: COMPAZINE 5 MG IV (03:10)
[2024-06-11 03:48] VITALS: BP 118/69
[2024-06-11 07:34] VITALS: BP 142/89
[2024-06-11] MEDS: ZOFRAN 4 MG IV (07:34)
[2024-06-11 07:52] LABS: Hematocrit 40.1 % (37.0-47.0); Hemoglobin 13.7 g/dL (12.0-16.0); Mean Corp Hgb Conc. 34.2 g/dL (33.0-37.0); Mean Corpuscular Hgb 29.7 pg (27.0-31.0); Mean Corpuscular Volume 86.8 fL (81.0-99.0); Mean Platelet Volume 9.9 fL (7.4-10.4); Platelet Count 277 10^3/uL (130-400); Red Blood Cell Count 4.62 10^6/uL (4.20-5.40); Red Cell Dist. Width 12.3 % (11.5-14.5); White Blood Cell Count 7.8 10^3/uL (4.8-10.8)
--- NOTE | 2024-06-11 07:56 | PTCARENOTE ---
Pt requesting to leave AMA this am. Feels she is not getting any better while staying here. Suggested that she wait for to arrive. She wanted to leave now. Dr Asher and Dr Mcnulty made aware. AMA paper signed by pt and IV removed as well as
telemetry. Dr Mcnulty up to see pt now.
--- NOTE | 2024-06-11 08:06 | W.PN.UPDATE ---
Addendum entered and electronically signed by Viry Asher MD 06/11/24 08:55:
called the patient on her cell. She stated she felt better and feel shell do better at home.
She lives with mom and said she is aware pt left.
Labs reviewed.
Discussed with pt that she should come back if she doesn't get better
Original Note:
Update Note
Progress Note Update
Nursing informed that pt wants to leave AMA. with in the next 10 min she left in a hurry before I could see her or talk to her. BMP still pending.
--- NOTE | 2024-06-11 08:37 | CM ---
office services manager reviewed patient's chart and patient has left AMA, patient is independent with adl's and ambulation, no dme, lives in a one story home with 10 steps to enter.
PCP: Jazz Alberto
Pharmacy: [facility].
[2024-06-11 08:39] LABS: Blood Urea Nitrogen 6 mg/dl (7-17); Calcium 9.9 mg/dl (8.4-10.2); Carbon Dioxide 18 mmol/L (22-30); Chloride 107 mmol/L (98-107); Estimated Creatinine Clearance > 125 ml/min; Glucose 91 mg/dl (70-99); Potassium 3.8 mmol/L (3.5-5.1); Sodium 138 mmol/L (135-145); eGFR > 60.00
--- NOTE | 2024-06-11 09:11 | W.DCSUMMARY ---
Discharge Summary
Discharge Data
Date of Admission: 06/09/24
Date of Discharge: 06/11/24
-
Pending Results: No
Hospital Course
Discharging Physician : Dr. Katelynn Mcnulty, Dr. Viry Asher
Disposition : AMA
Primary care physician : LEANA Simons
Principal Discharge diagnosis : Intractable nausea and vomiting
Chronic Discharge diagnosis : Anxiety and Depression, Marijuana Use
Hospital Course : 24 year old female with a past medical history of Anxiety and depression and marijuana use presented to the [facility] ED on 06/09/2024 with recent history of cyclical vomiting. Patient had increased her dose of Tirzepatide a few
days earlier on 06/05/2024 and developed symptoms of nausea and vomiting the next day. Patient came to the ED multiple times for her symptoms and this was her third visit. Patient had been unable to tolerate anything by mouth for the past 5 days.
She had multiple instances of vomiting and consistent nausea. Patient was given IV fluids and Zofran and underwent a CT scan of her abdomen and pelvis which did not show any findings. Patient was admitted to the hospital for further supportive
therapy. During her stay, patient continued to have nausea and vomiting and her symptoms usually worsened then got better after vomiting. She developed hypokalemia from her vomiting and her potassium was repleted. On 06/11/2024, patient decided to
leave the hospital against medical advice as she was feeling better according to her and that she had to take care of her dogs. Patient was counseled that she might continue to have worsening of symptoms but she was adamant about leaving. Patient's
mother was also aware of her leaving. They were both told that they can come back if she does not get better.
Important imaging findings :
CT Abd/pelvis W Iv Cont (06/09/2024):
1. No significant abnormality identified in the abdomen or pelvis, as described above.
Discharge Plan
-
Patient Disposition: Against Medical Advice
Referrals:
Remy,Jazz H., MEDICAL IMAGING SPECIALIST [Family Provider] -
Prescriptions:
No Action
trazodone 50 mg Tablet
50 mg PO HSPRN PRN (Reason: sleep)
fluoxetine [Prozac] 20 mg Capsule
20 mg PO DAILY
clonazepam 0.5 mg Tablet
0.5 mg PO DAILY
aripiprazole 2 mg Tablet
2 mg PO DAILY
ondansetron 4 mg tablet,disintegrating
4 mg PO Q8HPRN PRN (Reason: nausea and vomiting)
Discharge Date and Time
Discharge Date/Time: 06/11/24 08:20
Print Language: MALAY
--- NOTE | 2024-06-11 09:23 | W.PN.UPDATE ---
Update Note
Progress Note Update
Spoke to patient around 0800 regarding her wanting to leave the hospital. Patient was adamant about leaving as she said that she felt better and wanted to go home to take care of her dogs. Patient was counseled that her symptoms might worsen outside
of the hospital but she still wanted to leave. Patient already signed the document and left immediately after speaking with me.
== END 2024-06-11 08:20 | disposition left against medical advice (07) | DRG 392 ==
LOC: 4 WEST ACU 18:37
PROVIDERS: Physician Assistant; ADMITTING PHYSICIAN Hospitalist; EMERGENCY PHYSICIAN Student in an Organized Health Care Education/Training Program; FAMILY PHYSICIAN Nurse Practitioner Family
DX: R11.2 Nausea with vomiting, unspecified (principal); E87.20 Acidosis, unspecified; T50.995A Adverse effect of other drugs, medicaments and biological substances, initial encounter; E87.6 Hypokalemia; F12.90 Cannabis use, unspecified, uncomplicated; F32.A Depression, unspecified; F41.9 Anxiety disorder, unspecified; M41.9 Scoliosis, unspecified
CPT/HCPCS: 74177; 80048; 80053; 80306; 80307; 83690; 83735; 84703; 85025; 85027; 87502; 87811; 93005; 96361; 96374; 96375; 99285; 99406; Q9967

== ENCOUNTER 2024-06-12 08:16 | Emergency (ER) | payer OTHER, SELFPAY ==
[2024-06-12 08:19] VITALS: BP 142/96
--- NOTE | 2024-06-12 08:48 | ED.GENMED ---
History of Present Illness
General
Chief Complaint: Abdominal Symptoms
Source: patient
Exam Limitations: none
Time Seen by Provider: 06/12/24 08:39
History of Present Illness
History of Present Illness:
24-year-old female presents with recurrent nausea vomiting. She was admitted and left AMA as of yesterday for recurrent cannabis hyperemesis syndrome and cyclical vomiting. Since leaving her symptoms worsen. She denies any significant abdominal
pain. She denies any diarrhea or bowel movements in general. No fever. No chest pain or breath. She notes she has not used marijuana in about 9 days. No chest pain or shortness of breath. No other complaints
Past History
Past History
ED Past Medical History: Psychiatric (Depression, Anxiety, ADHD), Other (Scoliosis, cannabis hyperemesis syndrome) and Other (cyclic vomiting)
ED Past Surgical History: Other (Mastoidectomy)
Social History
Tobacco: Vaping
Alcohol: None
Drug: Marijuana
Personal: Single
Living: with family
Employment: Employed
Family History
Family History: Other (Noncontributory)
Phy Exam
Physical Exam
Physical Exam:
General: Tearful female no acute respiratory distress
HEENT: Normocephalic atraumatic
Heart: Regular rate and rhythm
Lungs: Clear no wheeze
Abdomen is soft nontender nondistended no guarding or rebound normal bowel sounds
Extremities: No cyanosis
Skin warm no rash
Course
Orders/Labs/Results
Orders:
Orders
06/12/24 08:46
0.9% Sodium Chloride 1000 ml [Nss] 1,000 ml IV BOLUS
Haloperidol Lactate [Haldol] 2 mg IV NOW STA
06/12/24 08:47
Test Result ONCE
06/12/24 09:06
Basic Metabolic Panel Urgent
Complete Blood Count/With Diff Urgent
HCG, Serum Qualitative Screen Urgent
Lipase Urgent
Abnormal Lab Results
06/12/24
09:06
Absolute Monos (auto) 0.7 H 10^3/uL
(0.1-0.6)
Monocytes % 11.5 H %
(1.7-9.3)
Carbon Dioxide 18 L mmol/L
(22-30)
Lipase 359 H U/L
(23-300)
06/12/24 09:06
06/12/24 09:06
Vital Signs
Initial and Last Documented VS:
Initial Vital Signs
Temp Pulse Resp BP Pulse Ox
97.6 F 84 16 142/96 98
06/12/24 08:19 06/12/24 08:19 06/12/24 08:19 06/12/24 08:19 06/12/24 08:19
Last Documented Vital Signs
Temp Pulse Resp BP Pulse Ox
97.6 F 98 17 130/81 98
06/12/24 08:19 06/12/24 11:20 06/12/24 11:20 06/12/24 10:00 06/12/24 11:20
MDM/Problems Addressed
Differential Diagnosis Includes:
Recurrent nausea vomiting with history of cannabis hyperemesis syndrome and cyclical vomiting. This is likely the same given similarity of symptoms. Will recheck labs and check for pancreatitis. She has been on tirzepatide for 2 months and has
had an increase in her dose recently. She has had success with Haldol in the past. Fluids ordered Haldol ordered
*Critical Care Note
Total Time (30-74mins, 75-104mins- exclusive of procedures): Not Applicable
Update Note
Update Note:
Patient reevaluated feeling better now tolerating oral fluids. After oral fluids she expressed her desire to go home. No indication for admission at this point given improvement of symptoms and normal labs.
ED Attending Note
-
Portions of this chart may have been created with voice recognition software.� Occasional wrong word or��sound alike� substitutions may have occurred due to the inherent limitations of voice recognition software.
Discharge Plan
Departure
Patient Disposition: Home (Routine Discharge)
Date of Disposition: 06/12/24
Time of Disposition: 11:33
Patient with high blood pressure during this ER visit?: No
Discharge Problem:
Nausea with vomiting, unspecified
Instructions: Nausea and Vomiting, Adult (DC)
Prescriptions:
No Action
trazodone 50 mg Tablet
50 mg PO HSPRN PRN (Reason: sleep)
fluoxetine [Prozac] 20 mg Capsule
20 mg PO DAILY
clonazepam 0.5 mg Tablet
0.5 mg PO DAILY
aripiprazole 2 mg Tablet
2 mg PO DAILY
ondansetron 4 mg tablet,disintegrating
4 mg PO Q8HPRN PRN (Reason: nausea and vomiting)
Referrals:
Jazz Alberto CRNP [Family Provider] -
Activity Restrictions/Additional Instructions:
Continue to drink plenty clear liquids at home. Use your nausea medicine that you have at home. Return if needed otherwise
Interventions
Interventions:
*Risk Screen - Suicide Last Done: 06/12/24 08:19
*General Assessment Last Done: 06/12/24 08:54
*Neglect/Abuse Screening Last Done: 06/12/24 08:19
*ED- Fall Risk Assessment Last Done: 06/12/24 08:54
*ED COVID-19 Vaccine History Last Done: 06/12/24 08:54
UI-Wsgcvw-Fkeelhkecn Assessment Last Done: 06/12/24 08:54
Discharge Date and Time
Print Language: RWANDAN
[2024-06-12 08:51] VITALS: BMI 25.3
[2024-06-12 08:53] VITALS: BP 133/94
[2024-06-12 09:00] VITALS: BP 140/98
[2024-06-12] MEDS: HALDOL 2 MG IV (09:06)
[2024-06-12] MEDS: NSS 1000 IV (09:06)
[2024-06-12 09:15] LABS: % Basophils 0.3 % (0-2); % Eosinophils 0.5 % (0-6); % Immature Granulocytes 0.3 % (0-0.5); % Lymphocytes 26.9 % (20.5-51.1); % Monocytes 11.5 % (1.7-9.3); % Neutrophils 60.5 % (42.2-75.2); Absolute Lymphocytes 1.6 10^3/uL (1.2-3.4); Absolute Monocytes 0.7 10^3/uL (0.1-0.6); Absolute Neutrophils 3.5 10^3/uL (1.4-6.5); Hematocrit 39.7 % (37.0-47.0); Hemoglobin 13.7 g/dL (12.0-16.0); Mean Corp Hgb Conc. 34.5 g/dL (33.0-37.0); Mean Corpuscular Hgb 29.5 pg (27.0-31.0); Mean Corpuscular Volume 85.4 fL (81.0-99.0); Mean Platelet Volume 9.5 fL (7.4-10.4); Nucleated Red Blood Cells % 0 %; Platelet Count 276 10^3/uL (130-400); Red Blood Cell Count 4.65 10^6/uL (4.20-5.40); Red Cell Dist. Width 12.4 % (11.5-14.5); White Blood Cell Count 5.8 10^3/uL (4.8-10.8)
[2024-06-12 09:31] LABS: HCG, Serum Qualitative Screen Negative
[2024-06-12 09:51] LABS: Blood Urea Nitrogen 10 mg/dl (7-17); Carbon Dioxide 18 mmol/L (22-30); Chloride 103 mmol/L (98-107); Estimated Creatinine Clearance > 125 ml/min; Glucose 96 mg/dl (70-99); Sodium 139 mmol/L (135-145); eGFR > 60.00
[2024-06-12 10:00] VITALS: BP 130/81
[2024-06-12 10:36] LABS: Lipase 359 U/L (23-300)
== END 2024-06-12 11:44 | disposition home or self-care (01) ==
LOC: EMR 08:16
PROVIDERS: Physician Assistant; EMERGENCY PHYSICIAN Emergency Medicine; FAMILY PHYSICIAN Nurse Practitioner Family
DX: R11.2 Nausea with vomiting, unspecified (principal); F12.90 Cannabis use, unspecified, uncomplicated; F41.8 Other specified anxiety disorders; F90.9 Attention-deficit hyperactivity disorder, unspecified type; M41.9 Scoliosis, unspecified; F17.290 Nicotine dependence, other tobacco product, uncomplicated
CPT/HCPCS: 99283; 96374; 96361; 80048; 83690; 84703; 85025

== ENCOUNTER 2024-11-25 22:31 | Emergency (ER) | payer OTHER, SELFPAY ==
[2024-11-25 22:35] VITALS: BP 132/88
[2024-11-25 23:39] VITALS: BMI 26.8
[2024-11-25 23:40] VITALS: BP 114/71
[2024-11-26] VITALS: BP 113/62
--- NOTE | 2024-11-26 00:12 | ED.GENMED ---
History of Present Illness
General
Chief Complaint: Allergic Reaction
Source: patient
Exam Limitations: none
Time Seen by Provider: 11/25/24 23:57
History of Present Illness
History of Present Illness:
Shortly after eating Octopus and Pieter with fish flavoring patient developed redness to her face and some scratchiness to her throat. No general itching or hives. No history of same. Symptoms have mostly self resolved
Past History
Past History
ED Past Medical History: Psychiatric (Depression, Anxiety, ADHD), Other (Scoliosis, cannabis hyperemesis syndrome) and Other (cyclic vomiting)
ED Past Surgical History: Other (Mastoidectomy)
Social History
Tobacco: Vaping
Alcohol: None
Drug: Marijuana
Personal: Single
Living: with family
Employment: Employed
Family History
Family History: Other (Noncontributory)
Review of Systems
Review of Systems
All Other Systems: Not applicable
Respiratory: Denies trouble breathing
Phy Exam
Physical Exam
Physical Exam:
GENERAL: Alert and oriented in no apparent distress. Possible minimal erythema to the cheeks. Much improved over the picture
EYE: Orbits normal.
NECK: Supple. No swelling
ENT: Pharynx with minimal erythema. No drooling no stridor speech normal
CARDIAC: Regular rate and rhythm without any obvious murmurs.
LUNGS: Clear breath sounds,normal
NEUROLOGICAL: Alert and oriented , grossly non-focal
SKIN: Warm and dry, no rash or lesion, no discoloration, skin intact.
PSYCH: Normal and appropriate interaction.
Course
Orders/Labs/Results
Orders:
Orders
11/26/24 00:05
Diphenhydramine [Benadryl] 50 mg PO NOW STA
Famotidine [Pepcid] 20 mg PO NOW STA
Prednisone [Deltasone] 50 mg PO NOW STA
Pulse Ox/cont/shift [RESP] Stat
Quantity: 1
Vital Signs
Initial and Last Documented VS:
Initial Vital Signs
Temp Pulse Resp BP Pulse Ox
97.9 F 90 16 132/88 100
11/25/24 22:35 11/25/24 22:35 11/25/24 22:35 11/25/24 22:35 11/25/24 22:35
Last Documented Vital Signs
Temp Pulse Resp BP Pulse Ox
97.9 F 89 15 114/71 98
11/25/24 22:35 11/25/24 23:45 11/25/24 23:45 11/25/24 23:40 11/26/24 00:14
MDM/Problems Addressed
Differential Diagnosis Includes:
Allergic reaction to likely a fish product. Mostly seems to have self resolved although still some symptoms. Clinically very stable. Oral prednisone H1 and H2 mckinley. Observation.
*Pulse Oximetry
SaO2: 98
Oxygen Mode of Delivery: Room air
Patient hypoxic: no
*Critical Care Note
Total Time (30-74mins, 75-104mins- exclusive of procedures): Not Applicable
Update Note
Update Note:
Patient is remained stable and nontoxic. Discharged to follow-up
ED Attending Note
-
Portions of this chart may have been created with voice recognition software.� Occasional wrong word or��sound alike� substitutions may have occurred due to the inherent limitations of voice recognition software.
Discharge Plan
Departure
Patient Disposition: Home (Routine Discharge)
Date of Disposition: 11/26/24
Time of Disposition: 01:50
Patient with high blood pressure during this ER visit?: No
Discharge Problem:
Acute allergic reaction
Instructions: Allergic reaction - ED (DC)
Prescriptions:
New
prednisone 50 mg tablet
50 mg PO DAILY Qty: 5 0RF
epinephrine [EpiPen 2-Martin] 0.3 mg/0.3 mL auto-injector
0.3 ml IM Q5-15M PRN (Reason: anaphylaxis) Qty: 2 0RF
No Action
trazodone 50 mg Tablet
50 mg PO HSPRN PRN (Reason: sleep)
fluoxetine [Prozac] 20 mg Capsule
20 mg PO DAILY
clonazepam 0.5 mg Tablet
0.5 mg PO DAILY
aripiprazole 2 mg Tablet
2 mg PO DAILY
ondansetron 4 mg tablet,disintegrating
4 mg PO Q8HPRN PRN (Reason: nausea and vomiting)
Referrals:
Jazz Alberto CRNP [Family Provider, Family Practice] - Follow up in 2-3 days
Interventions
Interventions:
*Risk Screen - Suicide Last Done: 11/25/24 22:35
*General Assessment Last Done: 11/25/24 22:35
*Neglect/Abuse Screening Last Done: 11/25/24 22:35
*ED- Fall Risk Assessment Last Done: 11/25/24 22:35
*ED COVID-19 Vaccine History Last Done: 11/25/24 22:35
ED- Cardiac Assessment Last Done: 11/25/24 23:54
ED- Pulmonary Assessment Last Done: 11/25/24 23:54
ED-Skin Assessment Last Done: 11/25/24 23:54
Discharge Date and Time
Print Language: NAMIBIAN
[2024-11-26] MEDS: PEPCID 20 MG PO (00:24)
[2024-11-26] MEDS: DELTASONE 50 MG PO (00:24)
[2024-11-26] MEDS: BENADRYL 50 MG PO (00:24)
[2024-11-26 01:00] VITALS: BP 107/84
== END 2024-11-26 02:08 | disposition home or self-care (01) ==
LOC: EMR 22:31
PROVIDERS: EMERGENCY PHYSICIAN Emergency Medicine; FAMILY PHYSICIAN Nurse Practitioner Family
DX: T78.1XXA Other adverse food reactions, not elsewhere classified, initial encounter (principal); R09.89 Other specified symptoms and signs involving the circulatory and respiratory systems; X58.XXXA Exposure to other specified factors, initial encounter; F17.290 Nicotine dependence, other tobacco product, uncomplicated
CPT/HCPCS: 99283